=== PATIENT | female | born 1985 | race American Indian/Alaskan Native ===

== ENCOUNTER 2021-01-04 12:36 | Outpatient (CLI) | payer BC, MEDICAID ==
[2021-01-04] MEDS ORDERED: LACTATED RINGERS 500 ML IV ONE (13:34)
[2021-01-04] MEDS ORDERED: NIFEdipine XL 30 MG TAB PO NR (13:40)
[2021-01-04 14:07] LABS: Bacteria,Urine 1+ /HPF (Negative); Bilirubin,Urine NEG (Negative); Blood,Urine SM (Negative); Color,Urine Yellow (Yellow); Mucus,Urine 1+ /HPF; Urobilinogen,Urine < 2.0 mg/dL (<2.0)
[2021-01-04 14:21] LABS: Hematocrit 33.8 % (30.3-42.9); Hemoglobin 11.2 gm/dl (10.1-14.3); Mean Corpuscular HGB Conc 33 % (30-34); Mean Corpuscular Volume 90 fl (79-97); Platelet Count 260 K/mm3 (140-440); Red Blood Count 3.76 M/mm3 (3.65-5.03); Red Cell Distribution Width 12.9 % (13.2-15.2)
[2021-01-04 14:23] LABS: Alanine Aminotransferase 6 units/L (7-56)
[2021-01-04 14:55] VITALS: BP 154/99
== END 2021-01-04 15:31 | disposition home or self-care (01) ==
LOC: TRG 12:36 → APU 12:38 → TRG 15:31
DX: O09.893 Supervision of other high risk pregnancies, third trimester (principal); Z3A.34 34 weeks gestation of pregnancy
CPT/HCPCS: 36415; 59025; 81001; 82565; 83615; 84450; 84460; 84550; 85027

== ENCOUNTER 2021-01-10 11:21 | Inpatient (IN) | payer BC, MEDICAID ==
[2021-01-10] MEDS ORDERED: LACTATED RINGERS 1,000 ML IV ONE (12:06)
[2021-01-10 12:45] LABS: Hematocrit 34.5 % (30.3-42.9); Hemoglobin 11.1 gm/dl (10.1-14.3); Mean Corpuscular HGB Conc 32 % (30-34); Mean Corpuscular Volume 89 fl (79-97); Platelet Count 298 K/mm3 (140-440); Red Blood Count 3.89 M/mm3 (3.65-5.03); Red Cell Distribution Width 13.6 % (13.2-15.2)
[2021-01-10 12:49] LABS: Bilirubin,Urine NEG (Negative); Blood,Urine MOD (Negative); Color,Urine Yellow (Yellow); Mucus,Urine FEW /HPF; Urobilinogen,Urine < 2.0 mg/dL (<2.0)
[2021-01-10 12:51] LABS: Protein,Urine <15 mg/dL mg/dL (Negative)
[2021-01-10 13:12] LABS: Alanine Aminotransferase 6 units/L (7-56); Uric Acid 4.7 mg/dL (3.5-7.6)
[2021-01-10] MEDS ORDERED: hydrALAZINE 20 MG/1 ML INJ IV NR (14:04)
[2021-01-10] MEDS ORDERED: hydrALAZINE 20 MG/1 ML INJ ONE ×2 (14:06→16:38)
[2021-01-10] MEDS ORDERED: OXYTOCIN 10 UNIT/1 ML INJ IM PRN (14:28)
[2021-01-10] MEDS ORDERED: CARBOPROST TROMETHAMINE 250 MCG/1 ML INJ IM PRN (14:28)
[2021-01-10] MEDS ORDERED: LOPERAMIDE 2 MG CAP PO PRN (14:28)
[2021-01-10] MEDS ORDERED: TERBUTALINE 1 MG/1 ML INJ SUB-Q PRN (14:28)
[2021-01-10] MEDS ORDERED: miSOPROStol 200 MCG TAB PR PRN (14:28)
[2021-01-10] MEDS ORDERED: METHYLERGONOVINE MALEATE 0.2 MG/ML VIAL IM PRN (14:28)
[2021-01-10] MEDS ORDERED: LIDOCAINE (2%) 20 MG/1 ML VIAL 20 ML MDV INFILTRATI NR (14:28)
[2021-01-10] MEDS ORDERED: LACTATED RINGERS 1,000 ML IV SCH (14:30)
[2021-01-10] MEDS ORDERED: MAGNESIUM SULFATE 4 GM/100 ML BAG IV ONE (14:39)
--- NOTE | 2021-01-10 14:45 | History and Physical Report ---
History of Present Illness Date of examination: 01/10/21 Date of admission: 01/10/21 Chief complaint: ELEVATED BP. History of present illness: This is Dr. Peñaloza dictating history and physical patient Maryana Scanlon. Her records are not here in the hospital. The patient is a 35-year-old female 9 para 7-0-1-7. She apparently has been taken Procardia during this . She was sent over from the clinic with elevated blood pressures today. Family medical history is noncontributory social history patient is single lives with children she is not . 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 She denies headaches or blurred vision. she has had elevated blood pressure with a previous . At this time the patient is also limited over 35 weeks . And she had a significantly elevated blood pressure when she presented to triage at the hospital. Subsequently the patient was admitted for treatment of low blood pressure magnesium sulfate and and possible induction of labor. Past History Past Medical History: hypertension Past Surgical History: no surgical history, other (7 vaginal deliveries.) Family/Genetic History: none Social history: no significant social history, single - Obstetrical History Expected Date of Delivery: 02/13/21 Actual Gestation: 35 Week(s) 1 Day(s) : 9 Para: 7 Hx # Term Pregnancies: 7 Number of Pregnancies: 0 Spontaneous Abortions: 1 Induced : 0 Number of Living Children: 7 Medications and Allergies Allergies Allergy/AdvReac Type Severity Reaction Status Date / Time No Known Allergies Allergy Verified 10/21/13 13:59 Home Medications Medication Instructions Recorded Confirmed Last Taken Type Ferrous Sulfate [Feosol 325 MG tab] 325 mg PO BID #60 tablet 06/05/16 Unknown Rx Ibuprofen [Motrin 600 MG tab] 600 mg PO Q6H #30 tablet 06/05/16 Unknown Rx Vit-Fe Fumar-FA [ 1 each PO QDAY #30 tablet 06/05/16 Unknown Rx Vitamin] labetaloL [Labetalol 200mg TAB] 200 mg PO BID #60 tablet 06/05/16 Unknown Rx Active Meds: Active Medications Carboprost Tromethamine (Carboprost Tromethamine 250 Mcg/1 Ml Inj) 250 mcg IM ONCE PRN PRN Reason: Uterine Bleeding Ephedrine Sulfate (Ephedrine Sulfate 50 Mg/1 Ml Inj) 10 mg IV Q2M PRN PRN Reason: Hypotension Lactated Ringer's (Lactated Ringers) 1,000 mls @ 125 mls/hr IV DIRECT ML Oxytocin/Sodium Chloride (Pitocin/Ns 30 Unit/500ml) 30 units in 500 mls @ 2 mls/hr IV TITR ML; Protocol Lactated Ringer's (Lactated Ringers) 1,000 mls @ 125 mls/hr IV DIRECT ML Oxytocin/Sodium Chloride (Pitocin/Ns 30 Unit/500ml) 30 units in 500 mls @ 40 mls/hr IV TITR ML; Protocol Magnesium Sulfate (Magnesium Sulfate 40gm/1000ml) 40 gm in 1,000 mls @ 50 mls/hr IV DIRECT ML Lidocaine (Lidocaine (2%) 20 Mg/1 Ml Vial 20 Ml Mdv) 20 ml INFILTRATI ONCE ONE Stop: 01/10/21 14:29 Loperamide HCl (Loperamide 2 Mg Cap) 2 mg PO ONCE PRN PRN Reason: give with Hemabate Methylergonovine Maleate (Methylergonovine Maleate 0.2 Mg/Ml Vial) 0.2 mg IM ONCE PRN PRN Reason: Uterine Bleeding Mineral Oil (Mineral Oil 30 Ml Oral Liqd) 30 ml PO QHS PRN PRN Reason: Constipation Misoprostol (Misoprostol 200 Mcg Tab) 800 mcg ME ONCE PRN PRN Reason: Uterine Bleeding Oxytocin (Oxytocin 10 Unit/1 Ml Inj) 10 unit IM ONCE PRN PRN Reason: Uterine Bleeding Terbutaline Sulfate (Terbutaline 1 Mg/1 Ml Inj) 0.25 mg SUB-Q ONCE PRN PRN Reason: Hyperstimulation/Hypertonicity Review of Systems All systems: negative - Vital Signs Vital signs: Vital Signs Pulse BP 83 188/102 01/10/21 12:04 01/10/21 12:04 Temp Pulse Resp BP Pulse Ox 98.2 F 97 H 20 174/77 100 01/10/21 12:25 01/10/21 14:34 01/10/21 12:25 01/10/21 14:34 01/10/21 14:34 - Physical Exam Breasts: Cardiovascular: Regular rate, Normal S1, Normal S2 Lungs: Positive: Clear to auscultation Abdomen: Positive: normal appearance, soft, normal bowel sounds. Negative: distention, tenderness Genitourinary (Female): Positive: normal external genitalia Vulva: both: normal Vagina: Positive: normal moisture. Negative: discharge Cervix: Positive: other (1 cm 50% -4 station vertex presenting bag of water intact) Uterus: Positive: enlarged, other (35-week size .) Adnexa: both: normal - Obstetrical FHR: auscultation normal, category 1 Uterine Contraction Monitor Mode: External Cervical Dilatation: 1 Cervical Effacement Percentage: 50 station: -4 Uterine Contraction Pattern: Absent Results Result Diagrams: 01/10/21 Unknown 01/10/21 Unknown Abnormal lab results 01/10/21 01/10/21 Range/Units Unknown Unknown WBC 14.3 H (4.5-11.0) K/mm3 Creatinine 0.4 L (0.6-1.2) mg/dL ALT 6 L (7-56) units/L Lactate Dehydrogenase 206 H (91-180) units/L All other labs normal. Assessment and Plan Severe toxemia of at 35 weeks. Plan treatment with magnesium sulfate treat her hypertensive disease and we will induce her with probably Cervidil later on today okay.
[2021-01-10] MEDS ORDERED: OXYTOCIN DRIP 30 UNITS/500 ML BAG IV SCH ×2 (15:00)
[2021-01-10] MEDS ORDERED: ePHEDrine SULFATE 50 MG/1 ML INJ IV PRN (15:00)
[2021-01-10] MEDS: MAGNESIUM SULFATE 40GM/1000ML 40 GM/1,000 ML BAG IV SCH (15:59)
[2021-01-10] MEDS ORDERED: hydrALAZINE 20 MG/1 ML INJ IV ONE (16:30)
[2021-01-10] MEDS ORDERED: DINOPROSTONE 10 MG VAG SUPP VG PRN (17:18)
[2021-01-10 18:17] LABS: Hematocrit 32.6 % (30.3-42.9); Hemoglobin 11.2 gm/dl (10.1-14.3); Mean Corpuscular HGB Conc 34 % (30-34); Mean Corpuscular Volume 89 fl (79-97); Platelet Count 298 K/mm3 (140-440); Red Blood Count 3.66 M/mm3 (3.65-5.03); Red Cell Distribution Width 13.7 % (13.2-15.2)
[2021-01-10] MEDS ORDERED: HYDROcodone/ACETAMINOPHEN 5-325 MG TAB PO PRN (19:47)
[2021-01-10] MEDS ORDERED: MINERAL OIL 30 ML ORAL LIQD PO PRN (22:00)
[2021-01-11] MEDS ORDERED: SODIUM CHLORIDE NASAL SPRAY 44ML NS PRN (00:54)
[2021-01-11] MEDS ORDERED: ACETAMINOPHEN 325 MG TAB PO ONE (01:52)
[2021-01-11] MEDS: LACTATED RINGERS 1,000 ML IV SCH ×2 (05:37→19:15)
[2021-01-11] MEDS ORDERED: ACETAMINOPHEN 500 MG TAB PO PRN (09:00)
[2021-01-11] MEDS ORDERED: AMPICILLIN/NS 2 GM/100 ML 2 GM/100 ML BAG IV ONE ×2 (10:10→10:30)
--- NOTE | 2021-01-11 10:16 | Progress Note ---
Assessment and Plan A: IUP @ 35 2/7 Weeks Category I Tracing CHTN with Superimposed Preeclampsia Advanced Maternal Age Grandmultip Maternal Obesity GBS Unknown P: Continue Magnesium Sulfate as ordered Continue Standard Magnesium Precautions Cook's Cervical Ripening Balloon Placed Start Low Dose Pitocin Start GBS Prophylaxis Subjective - Subjective Date of service: 01/11/21 Patient reports: movement normal, other (Reported a DUNCAN this morning that is relieved by Tylenol. Denies visual changes, N&V, and epigastic pain ) Objective - Vital Signs Vital Signs: Vital Signs - 12hr 01/10/21 01/10/21 01/10/21 22:14 22:19 22:24 Temperature Pulse Rate 109 H 109 H 108 H Respiratory Rate Blood Pressure O2 Sat by Pulse 99 100 99 Oximetry 01/10/21 01/10/21 01/10/21 22:29 22:34 22:36 Temperature Pulse Rate 112 H 109 H 110 H Respiratory Rate Blood Pressure 135/73 O2 Sat by Pulse 99 99 Oximetry 01/10/21 01/10/21 01/10/21 22:39 22:44 22:49 Temperature Pulse Rate 103 H 110 H 108 H Respiratory Rate Blood Pressure O2 Sat by Pulse 99 99 100 Oximetry 01/10/21 01/10/21 01/10/21 22:54 22:59 23:04 Temperature Pulse Rate 109 H 110 H 106 H Respiratory Rate Blood Pressure O2 Sat by Pulse 99 99 99 Oximetry 01/10/21 01/10/21 01/10/21 23:09 23:14 23:19 Temperature Pulse Rate 107 H 105 H 112 H Respiratory Rate Blood Pressure O2 Sat by Pulse 99 99 100 Oximetry 01/10/21 01/10/21 01/10/21 23:24 23:29 23:34 Temperature Pulse Rate 105 H 108 H 98 H Respiratory Rate Blood Pressure O2 Sat by Pulse 99 99 98 Oximetry 01/10/21 01/10/21 01/10/21 23:36 23:39 23:44 Temperature Pulse Rate 96 H 107 H 111 H Respiratory Rate Blood Pressure 134/73 O2 Sat by Pulse 98 99 Oximetry 01/10/21 01/10/21 01/10/21 23:49 23:52 23:54 Temperature Pulse Rate 91 H 52 L 95 H Respiratory Rate Blood Pressure O2 Sat by Pulse 98 86 98 Oximetry 01/10/21 01/11/21 01/11/21 23:59 00:04 00:09 Temperature Pulse Rate 89 85 88 Respiratory Rate Blood Pressure O2 Sat by Pulse 97 98 98 Oximetry 01/11/21 01/11/21 01/11/21 00:14 00:19 00:24 Temperature Pulse Rate 81 78 91 H Respiratory Rate Blood Pressure O2 Sat by Pulse 97 97 97 Oximetry 01/11/21 01/11/21 01/11/21 00:29 00:34 00:37 Temperature Pulse Rate 98 H 75 96 H Respiratory Rate Blood Pressure 141/77 O2 Sat by Pulse 98 99 Oximetry 01/11/21 01/11/21 01/11/21 00:39 00:44 00:49 Temperature Pulse Rate 114 H 112 H 91 H Respiratory Rate Blood Pressure O2 Sat by Pulse 99 100 98 Oximetry 01/11/21 01/11/21 01/11/21 00:54 00:59 01:04 Temperature Pulse Rate 104 H 93 H 91 H Respiratory Rate Blood Pressure O2 Sat by Pulse 100 98 98 Oximetry 01/11/21 01/11/21 01/11/21 01:09 01:14 01:19 Temperature Pulse Rate 76 81 91 H Respiratory Rate Blood Pressure O2 Sat by Pulse 98 97 99 Oximetry 01/11/21 01/11/21 01/11/21 01:24 01:29 01:34 Temperature Pulse Rate 111 H 79 88 Respiratory Rate Blood Pressure O2 Sat by Pulse 99 97 97 Oximetry 01/11/21 01/11/21 01/11/21 01:37 01:39 01:41 Temperature Pulse Rate 82 87 109 H Respiratory Rate Blood Pressure 129/64 O2 Sat by Pulse 97 93 Oximetry 01/11/21 01/11/21 01/11/21 01:44 01:49 01:54 Temperature Pulse Rate 80 84 83 Respiratory Rate Blood Pressure O2 Sat by Pulse 98 98 97 Oximetry 01/11/21 01/11/21 01/11/21 01:59 02:04 02:09 Temperature Pulse Rate 78 95 H 92 H Respiratory Rate Blood Pressure O2 Sat by Pulse 97 99 96 Oximetry 01/11/21 01/11/21 01/11/21 02:14 02:19 02:24 Temperature Pulse Rate 111 H 92 H 83 Respiratory Rate Blood Pressure O2 Sat by Pulse 99 97 98 Oximetry 01/11/21 01/11/21 01/11/21 02:29 02:34 02:36 Temperature Pulse Rate 89 81 97 H Respiratory Rate Blood Pressure 140/75 O2 Sat by Pulse 97 97 Oximetry 01/11/21 01/11/21 01/11/21 02:39 02:44 02:49 Temperature Pulse Rate 95 H 92 H 87 Respiratory Rate Blood Pressure O2 Sat by Pulse 96 98 96 Oximetry 01/11/21 01/11/21 01/11/21 02:54 02:59 03:04 Temperature Pulse Rate 91 H 92 H 90 Respiratory Rate Blood Pressure O2 Sat by Pulse 97 98 98 Oximetry 01/11/21 01/11/21 01/11/21 03:09 03:14 03:19 Temperature Pulse Rate 95 H 99 H 89 Respiratory Rate Blood Pressure O2 Sat by Pulse 97 97 98 Oximetry 01/11/21 01/11/21 01/11/21 03:24 03:28 03:29 Temperature Pulse Rate 94 H 102 H 92 H Respiratory Rate Blood Pressure O2 Sat by Pulse 98 93 99 Oximetry 01/11/21 01/11/21 01/11/21 03:34 03:36 03:39 Temperature Pulse Rate 90 103 H 99 H Respiratory Rate Blood Pressure 134/62 O2 Sat by Pulse 98 98 Oximetry 01/11/21 01/11/21 01/11/21 03:44 03:49 03:54 Temperature Pulse Rate 105 H 96 H 103 H Respiratory Rate Blood Pressure O2 Sat by Pulse 98 98 98 Oximetry 01/11/21 01/11/21 01/11/21 03:59 04:00 04:04 Temperature 98.3 F Pulse Rate 87 116 H Respiratory 18 Rate Blood Pressure O2 Sat by Pulse 98 96 Oximetry 01/11/21 01/11/21 01/11/21 04:09 04:14 04:19 Temperature Pulse Rate 93 H 87 86 Respiratory Rate Blood Pressure O2 Sat by Pulse 98 98 98 Oximetry 01/11/21 01/11/21 01/11/21 04:24 04:29 04:34 Temperature Pulse Rate 116 H 105 H 90 Respiratory Rate Blood Pressure O2 Sat by Pulse 98 98 99 Oximetry 01/11/21 01/11/21 01/11/21 04:36 04:39 04:44 Temperature Pulse Rate 97 H 96 H 107 H Respiratory Rate Blood Pressure 139/92 O2 Sat by Pulse 100 98 Oximetry 01/11/21 01/11/21 01/11/21 04:49 04:54 04:59 Temperature Pulse Rate 94 H 89 98 H Respiratory Rate Blood Pressure O2 Sat by Pulse 97 98 99 Oximetry 01/11/21 01/11/21 01/11/21 05:04 05:09 05:14 Temperature Pulse Rate 116 H 121 H 113 H Respiratory Rate Blood Pressure O2 Sat by Pulse 97 98 99 Oximetry 01/11/21 01/11/21 01/11/21 05:19 05:24 05:29 Temperature Pulse Rate 103 H 98 H 95 H Respiratory Rate Blood Pressure O2 Sat by Pulse 98 98 99 Oximetry 01/11/21 01/11/21 01/11/21 05:34 05:39 05:44 Temperature Pulse Rate 89 93 H 90 Respiratory Rate Blood Pressure O2 Sat by Pulse 98 99 97 Oximetry 01/11/21 01/11/21 01/11/21 05:49 05:54 05:59 Temperature Pulse Rate 85 82 77 Respiratory Rate Blood Pressure O2 Sat by Pulse 96 97 98 Oximetry 01/11/21 01/11/21 01/11/21 06:04 06:09 06:14 Temperature Pulse Rate 82 82 108 H Respiratory Rate Blood Pressure O2 Sat by Pulse 96 96 97 Oximetry 01/11/21 01/11/21 01/11/21 06:19 06:21 06:24 Temperature Pulse Rate 81 95 H 104 H Respiratory Rate Blood Pressure O2 Sat by Pulse 97 93 100 Oximetry 01/11/21 01/11/21 01/11/21 06:29 06:34 06:36 Temperature Pulse Rate 98 H 76 100 H Respiratory Rate Blood Pressure O2 Sat by Pulse 97 96 92 Oximetry 01/11/21 01/11/21 01/11/21 06:39 06:44 06:45 Temperature Pulse Rate 89 82 96 H Respiratory Rate Blood Pressure O2 Sat by Pulse 98 96 94 Oximetry 01/11/21 01/11/21 01/11/21 06:47 06:49 06:54 Temperature Pulse Rate 97 H 95 H 105 H Respiratory Rate Blood Pressure 173/83 142/82 O2 Sat by Pulse 98 96 Oximetry 01/11/21 01/11/21 01/11/21 06:59 07:04 07:09 Temperature Pulse Rate 85 101 H 97 H Respiratory Rate Blood Pressure O2 Sat by Pulse 97 98 99 Oximetry 01/11/21 01/11/21 01/11/21 07:13 07:14 07:15 Temperature 97.9 F Pulse Rate 92 H 96 H Respiratory 20 Rate Blood Pressure 146/83 O2 Sat by Pulse 100 99 Oximetry 01/11/21 01/11/21 01/11/21 07:19 07:24 07:29 Temperature Pulse Rate 96 H 93 H 84 Respiratory Rate Blood Pressure O2 Sat by Pulse 99 98 98 Oximetry 01/11/21 01/11/21 01/11/21 07:34 07:37 07:38 Temperature Pulse Rate 92 H 96 H 91 H Respiratory Rate Blood Pressure 176/85 157/82 O2 Sat by Pulse 99 Oximetry 01/11/21 01/11/21 01/11/21 07:39 07:44 07:49 Temperature Pulse Rate 88 84 106 H Respiratory Rate Blood Pressure O2 Sat by Pulse 98 97 99 Oximetry 01/11/21 01/11/21 01/11/21 07:54 07:59 08:04 Temperature Pulse Rate 107 H 95 H 92 H Respiratory Rate Blood Pressure O2 Sat by Pulse 99 97 97 Oximetry 01/11/21 01/11/21 01/11/21 08:09 08:14 08:19 Temperature Pulse Rate 94 H 118 H 98 H Respiratory Rate Blood Pressure O2 Sat by Pulse 97 99 99 Oximetry 01/11/21 01/11/21 01/11/21 08:24 08:29 08:34 Temperature Pulse Rate 96 H 96 H 98 H Respiratory Rate Blood Pressure O2 Sat by Pulse 98 99 99 Oximetry 01/11/21 01/11/21 01/11/21 08:36 08:39 08:44 Temperature Pulse Rate 103 H 99 H 99 H Respiratory 20 Rate Blood Pressure 146/82 O2 Sat by Pulse 98 99 Oximetry 01/11/21 01/11/21 01/11/21 08:49 08:54 08:59 Temperature Pulse Rate 94 H 94 H 107 H Respiratory Rate Blood Pressure O2 Sat by Pulse 99 99 98 Oximetry 01/11/21 01/11/21 01/11/21 09:04 09:09 09:14 Temperature Pulse Rate 92 H 89 89 Respiratory Rate Blood Pressure O2 Sat by Pulse 97 97 97 Oximetry 01/11/21 01/11/21 01/11/21 09:19 09:24 09:29 Temperature Pulse Rate 104 H 94 H 89 Respiratory Rate Blood Pressure O2 Sat by Pulse 99 98 97 Oximetry 01/11/21 01/11/2101/11/21 09:34 09:36 09:39 Temperature Pulse Rate 96 H 99 H 89 Respiratory Rate Blood Pressure 145/76 O2 Sat by Pulse 98 98 Oximetry 01/11/21 01/11/21 01/11/21 09:44 09:50 09:55 Temperature Pulse Rate 97 H 107 H 98 H Respiratory Rate Blood Pressure O2 Sat by Pulse 98 100 100 Oximetry 01/11/21 01/11/21 10:00 10:05 Temperature Pulse Rate 104 H 101 H Respiratory Rate Blood Pressure O2 Sat by Pulse 100 99 Oximetry - Exam Cardiovascular: Regular rate Lungs: Normal air movement Abdomen: Present: normal appearance, soft Uterus: Present: normal, firm, fundal height above umbilicus FHR: category 1 Uterine Contraction Monitor Mode: External Cervical Dilatation: 1 (Vtx; Intact) Cervical Effacement Percentage: 40 station: -3 Uterine Contraction Pattern: Irregular Uterine Tone Measurement Phase: Resting Uterine Contraction Intensity: Mild Extremities: normal - Labs Labs: Abnormal Labs 01/10/21 01/10/21 01/10/21 17:49 22:32 Unknown WBC 17.3 H 14.3 H Creatinine Magnesium 4.20 H ALT Lactate Dehydrogenase 01/10/21 01/11/21 Unknown 05:29 WBC Creatinine 0.4 L Magnesium 4.70 H ALT 6 L Lactate Dehydrogenase 206 H Laboratory Results - last 24 hr 01/10/21 01/10/21 01/10/21 14:20 17:49 22:32 WBC 17.3 H RBC 3.66 Hgb 11.2 Hct 32.6 MCV 89 MCH 31 MCHC 34 RDW 13.7 Plt Count 298 Creatinine Estimated GFR Uric Acid Magnesium 4.20 H AST ALT Lactate Dehydrogenase Urine Color Urine Turbidity Urine pH Ur Specific [place] Urine Protein Urine Glucose (UA) Urine Ketones Urine Blood Urine Nitrite Urine Bilirubin Urine Urobilinogen Ur Leukocyte Esterase Urine WBC (Auto) Urine RBC (Auto) U Epithel Cells (Auto) Urine Mucus Syphilis IgG Antibody HIV 1&2 Antibody Rapid HIV P24 Antigen Blood Type AB POSITIVE Antibody Screen Negative 01/10/21 01/10/21 01/10/21 Unknown Unknown Unknown WBC 14.3 H RBC 3.89 Hgb 11.1 Hct 34.5 MCV 89 MCH 29 MCHC 32 RDW 13.6 Plt Count 298 Creatinine 0.4 L Estimated GFR > 60 Uric Acid 4.7 Magnesium AST 13 ALT 6 L Lactate Dehydrogenase 206 H Urine Color Yellow Urine Turbidity Clear Urine pH 6.0 Ur Specific [place] 1.019 Urine Protein <15 mg/dl Urine Glucose (UA) Neg Urine Ketones Tr Urine Blood Mod Urine Nitrite Neg Urine Bilirubin Neg Urine Urobilinogen < 2.0 Ur Leukocyte Esterase Neg Urine WBC (Auto) 1.0 Urine RBC (Auto) 14.0 U Epithel Cells (Auto) 10.0 Urine Mucus Few Syphilis IgG Antibody HIV 1&2 Antibody Rapid HIV P24 Antigen Blood Type Antibody Screen 01/11/21 01/11/21 01/11/21 05:29 05:29 05:29 WBC RBC Hgb Hct MCV MCH MCHC RDW Plt Count Creatinine Estimated GFR Uric Acid Magnesium 4.70 H AST ALT Lactate Dehydrogenase Urine Color Urine Turbidity Urine pH Ur Specific [place] Urine Protein Urine Glucose (UA) Urine Ketones Urine Blood Urine Nitrite Urine Bilirubin Urine Urobilinogen Ur Leukocyte Esterase Urine WBC (Auto) Urine RBC (Auto) U Epithel Cells (Auto) Urine Mucus Syphilis IgG Antibody Nonreactive HIV 1&2 Antibody Rapid Non react HIV P24 Antigen Non react Blood Type Antibody Screen
--- NOTE | 2021-01-11 12:53 | Progress Note ---
Assessment and Plan A: IUP @ 35 2/7 Weeks Category I Tracing CHTN with Superimposed Preeclampsia Advanced Maternal Age Grandmultip Maternal Obesity GBS Unknown P: Continue Magnesium Sulfate as ordered Continue Standard Magnesium Precautions Cook's Cervical Ripening Balloon fell out AROM Continue Pitocin Augmentation Continue GBS Prophylaxis Subjective - Subjective Date of service: 01/11/21 Patient reports: movement normal, contractions, other Objective - Vital Signs Vital Signs: Vital Signs - 12hr 01/11/21 01/11/21 01/11/21 00:54 00:59 01:04 Temperature Pulse Rate 104 H 93 H 91 H Respiratory Rate Blood Pressure O2 Sat by Pulse 100 98 98 Oximetry 01/11/21 01/11/21 01/11/21 01:09 01:14 01:19 Temperature Pulse Rate 76 81 91 H Respiratory Rate Blood Pressure O2 Sat by Pulse 98 97 99 Oximetry 01/11/21 01/11/21 01/11/21 01:24 01:29 01:34 Temperature Pulse Rate 111 H 79 88 Respiratory Rate Blood Pressure O2 Sat by Pulse 99 97 97 Oximetry 01/11/21 01/11/21 01/11/21 01:37 01:39 01:41 Temperature Pulse Rate 82 87 109 H Respiratory Rate Blood Pressure 129/64 O2 Sat by Pulse 97 93 Oximetry 01/11/21 01/11/21 01/11/21 01:44 01:49 01:54 Temperature Pulse Rate 80 84 83 Respiratory Rate Blood Pressure O2 Sat by Pulse 98 98 97 Oximetry 01/11/21 01/11/21 01/11/21 01:59 02:04 02:09 Temperature Pulse Rate 78 95 H 92 H Respiratory Rate Blood Pressure O2 Sat by Pulse 97 99 96 Oximetry 01/11/21 01/11/21 01/11/21 02:14 02:19 02:24 Temperature Pulse Rate 111 H 92 H 83 Respiratory Rate Blood Pressure O2 Sat by Pulse 99 97 98 Oximetry 01/11/21 01/11/21 01/11/21 02:29 02:34 02:36 Temperature Pulse Rate 89 81 97 H Respiratory Rate Blood Pressure 140/75 O2 Sat by Pulse 97 97 Oximetry 01/11/21 01/11/21 01/11/21 02:39 02:44 02:49 Temperature Pulse Rate 95 H 92 H 87 Respiratory Rate Blood Pressure O2 Sat by Pulse 96 98 96 Oximetry 06/01/11/21 01/11/21 02:54 02:59 03:04 Temperature Pulse Rate 91 H 92 H 90 Respiratory Rate Blood Pressure O2 Sat by Pulse 97 98 98 Oximetry 01/11/21 01/11/21 01/11/21 03:09 03:14 03:19 Temperature Pulse Rate 95 H 99 H 89 Respiratory Rate Blood Pressure O2 Sat by Pulse 97 97 98 Oximetry 01/11/21 01/11/21 01/11/21 03:24 03:28 03:29 Temperature Pulse Rate 94 H 102 H 92 H Respiratory Rate Blood Pressure O2 Sat by Pulse 98 93 99 Oximetry 01/11/21 01/11/21 01/11/21 03:34 03:36 03:39 Temperature Pulse Rate 90 103 H 99 H Respiratory Rate Blood Pressure 134/62 O2 Sat by Pulse 98 98 Oximetry 01/11/21 01/11/21 01/11/21 03:44 03:49 03:54 Temperature Pulse Rate 105 H 96 H 103 H Respiratory Rate Blood Pressure O2 Sat by Pulse 98 98 98 Oximetry 01/11/21 01/11/21 01/11/21 03:59 04:00 04:04 Temperature 98.3 F Pulse Rate 87 116 H Respiratory 18 Rate Blood Pressure O2 Sat by Pulse 98 96 Oximetry 01/11/21 01/11/21 01/11/21 04:09 04:14 04:19 Temperature Pulse Rate 93 H 87 86 Respiratory Rate Blood Pressure O2 Sat by Pulse 98 98 98 Oximetry 01/11/21 01/11/21 01/11/21 04:24 04:29 04:34 Temperature Pulse Rate 116 H 105 H 90 Respiratory Rate Blood Pressure O2 Sat by Pulse 98 98 99 Oximetry 01/11/21 01/11/21 01/11/21 04:36 04:39 04:44 Temperature Pulse Rate 97 H 96 H 107 H Respiratory Rate Blood Pressure 139/92 O2 Sat by Pulse 100 98 Oximetry 01/11/21 01/11/21 01/11/21 04:49 04:54 04:59 Temperature Pulse Rate 94 H 89 98 H Respiratory Rate Blood Pressure O2 Sat by Pulse 97 98 99 Oximetry 01/11/21 01/11/21 01/11/21 05:04 05:09 05:14 Temperature Pulse Rate 116 H 121 H 113 H Respiratory Rate Blood Pressure O2 Sat by Pulse 97 98 99 Oximetry 01/11/21 01/11/21 01/11/21 05:19 05:24 05:29 Temperature Pulse Rate 103 H 98 H 95 H Respiratory Rate Blood Pressure O2 Sat by Pulse 98 98 99 Oximetry 01/11/21 01/11/21 01/11/21 05:34 05:39 05:44 Temperature Pulse Rate 89 93 H 90 Respiratory Rate Blood Pressure O2 Sat by Pulse 98 99 97 Oximetry 01/11/21 01/11/21 01/11/21 05:49 05:54 05:59 Temperature Pulse Rate 85 82 77 Respiratory Rate Blood Pressure O2 Sat by Pulse 96 97 98 Oximetry 01/11/21 01/11/21 01/11/21 06:04 06:09 06:14 Temperature Pulse Rate 82 82 108 H Respiratory Rate Blood Pressure O2 Sat by Pulse 96 96 97 Oximetry 01/11/21 01/11/21 01/11/21 06:19 06:21 06:24 Temperature Pulse Rate 81 95 H 104 H Respiratory Rate Blood Pressure O2 Sat by Pulse 97 93 100 Oximetry 01/11/21 01/11/21 01/11/21 06:29 06:34 06:36 Temperature Pulse Rate 98 H 76 100 H Respiratory Rate Blood Pressure O2 Sat by Pulse 97 96 92 Oximetry 01/11/21 01/11/21 01/11/21 06:39 06:44 06:45 Temperature Pulse Rate 89 82 96 H Respiratory Rate Blood Pressure O2 Sat by Pulse 98 96 94 Oximetry 01/11/21 01/11/21 01/11/21 06:47 06:49 06:54 Temperature Pulse Rate 97 H 95 H 105 H Respiratory Rate Blood Pressure 173/83 142/82 O2 Sat by Pulse 98 96 Oximetry 01/11/21 01/11/21 01/11/21 06:59 07:04 07:09 Temperature Pulse Rate 85 101 H 97 H Respiratory Rate Blood Pressure O2 Sat by Pulse 97 98 99 Oximetry 01/11/21 01/11/21 01/11/21 07:13 07:14 07:15 Temperature 97.9 F Pulse Rate 92 H 96 H Respiratory 20 Rate Blood Pressure 146/83 O2 Sat by Pulse 100 99 Oximetry 01/11/21 01/11/21 01/11/21 07:19 07:24 07:29 Temperature Pulse Rate 96 H 93 H 84 Respiratory Rate Blood Pressure O2 Sat by Pulse 99 98 98 Oximetry 01/11/21 01/11/21 01/11/21 07:34 07:37 07:38 Temperature Pulse Rate 92 H 96 H 91 H Respiratory Rate Blood Pressure 176/85 157/82 O2 Sat by Pulse 99 Oximetry 01/11/21 01/11/21 01/11/21 07:39 07:44 07:49 Temperature Pulse Rate 88 84 106 H Respiratory Rate Blood Pressure O2 Sat by Pulse 98 97 99 Oximetry 01/11/21 01/11/21 01/11/21 07:54 07:59 08:04 Temperature Pulse Rate 107 H 95 H 92 H Respiratory Rate Blood Pressure O2 Sat by Pulse 99 97 97 Oximetry 01/11/21 01/11/21 01/11/21 08:09 08:14 08:19 Temperature Pulse Rate 94 H 118 H 98 H Respiratory Rate Blood Pressure O2 Sat by Pulse 97 99 99 Oximetry 01/11/21 01/11/21 01/11/21 08:24 08:29 08:34 Temperature Pulse Rate 96 H 96 H 98 H Respiratory Rate Blood Pressure O2 Sat by Pulse 98 99 99 Oximetry 01/11/21 01/11/21 01/11/21 08:36 08:39 08:44 Temperature Pulse Rate 103 H 99 H 99 H Respiratory 20 Rate Blood Pressure 146/82 O2 Sat by Pulse 98 99 Oximetry 01/11/21 01/11/21 01/11/21 08:49 08:54 08:59 Temperature Pulse Rate 94 H 94 H 107 H Respiratory Rate Blood Pressure O2 Sat by Pulse 99 99 98 Oximetry 01/11/21 01/11/21 01/11/21 09:04 09:09 09:14 Temperature Pulse Rate 92 H 89 89 Respiratory Rate Blood Pressure O2 Sat by Pulse 97 97 97 Oximetry 01/11/21 01/11/21 01/11/21 09:19 09:24 09:29 Temperature Pulse Rate 104 H 94 H 89 Respiratory Rate Blood Pressure O2 Sat by Pulse 99 98 97 Oximetry 01/11/21 01/11/21 01/11/21 09:34 09:36 09:39 Temperature Pulse Rate 96 H 99 H 89 Respiratory Rate Blood Pressure 145/76 O2 Sat by Pulse 98 98 Oximetry 01/11/21 01/11/21 01/11/21 09:44 09:50 09:55 Temperature Pulse Rate 97 H 107 H 98 H Respiratory Rate Blood Pressure O2 Sat by Pulse 98 100 100 Oximetry 01/11/21 01/11/21 01/11/21 10:00 10:05 10:10 Temperature Pulse Rate 104 H 101 H 96 H Respiratory Rate Blood Pressure O2 Sat by Pulse 100 99 99 Oximetry 01/11/21 01/11/21 01/11/21 10:15 10:20 10:24 Temperature Pulse Rate 88 93 H 153 H Respiratory Rate Blood Pressure 165/75 O2 Sat by Pulse 100 100 84 Oximetry 01/11/21 01/11/21 01/11/21 10:26 10:31 10:36 Temperature Pulse Rate 88 87 95 H Respiratory Rate Blood Pressure O2 Sat by Pulse 100 96 100 Oximetry 01/11/21 01/11/21 01/11/21 10:37 10:41 10:46 Temperature Pulse Rate 99 H 95 H 93 H Respiratory Rate Blood Pressure 131/64 O2 Sat by Pulse 100 100 Oximetry 01/11/21 01/11/21 01/11/21 10:51 10:56 11:01 Temperature Pulse Rate 95 H 98 H 87 Respiratory Rate Blood Pressure O2 Sat by Pulse 99 100 100 Oximetry 01/11/21 01/11/21 01/11/21 11:06 11:11 11:16 Temperature Pulse Rate 89 88 90 Respiratory Rate Blood Pressure O2 Sat by Pulse 100 100 99 Oximetry 01/11/21 01/11/21 01/11/21 11:20 11:21 11:26 Temperature 98.3 F Pulse Rate 80 85 Respiratory Rate Blood Pressure O2 Sat by Pulse 100 99 Oximetry 01/11/21 01/11/21 01/11/21 11:31 11:36 11:37 Temperature Pulse Rate 90 89 100 H Respiratory Rate Blood Pressure 159/81 O2 Sat by Pulse 100 99 Oximetry 01/11/21 01/11/21 01/11/21 11:41 11:46 11:51 Temperature Pulse Rate 105 H 86 104 H Respiratory Rate Blood Pressure O2 Sat by Pulse 100 100 98 Oximetry 01/11/21 01/11/21 01/11/21 11:56 12:01 12:06 Temperature Pulse Rate 83 82 88 Respiratory Rate Blood Pressure O2 Sat by Pulse 96 98 94 Oximetry 01/11/21 01/11/21 01/11/21 12:11 12:13 12:16 Temperature Pulse Rate 92 H 101 H 94 H Respiratory Rate Blood Pressure 141/93 O2 Sat by Pulse 96 97 Oximetry 01/11/21 01/11/21 01/11/21 12:21 12:26 12:31 Temperature Pulse Rate 88 87 88 Respiratory Rate Blood Pressure O2 Sat by Pulse 98 99 95 Oximetry 01/11/21 01/11/21 01/11/21 12:36 12:41 12:46 Temperature Pulse Rate 98 H 101 H 105 H Respiratory Rate Blood Pressure 167/94 O2 Sat by Pulse 99 100 100 Oximetry 01/11/21 12:51 Temperature Pulse Rate 94 H Respiratory Rate Blood Pressure O2 Sat by Pulse 100 Oximetry - Exam Breasts: normal Cardiovascular: Regular rate Lungs: Clear to auscultation Abdomen: Present: normal appearance, soft Uterus: Present: normal, firm, fundal height above umbilicus FHR: category 1 Uterine Contraction Monitor Mode: External Cervical Dilatation: 5 (AROM of a moderate amount of clear fluid at 1240) Cervical Effacement Percentage: 70 station: -2 Uterine Contraction Pattern: Irregular Uterine Tone Measurement Phase: Resting Uterine Contraction Intensity: Moderate Extremities: normal - Labs Labs: Abnormal Labs 01/10/21 01/10/21 01/10/21 17:49 22:32 Unknown WBC 17.3 H 14.3 H Creatinine Magnesium 4.20 H ALT Lactate Dehydrogenase 01/10/21 01/11/21 01/11/21 Unknown 05:29 11:07 WBC Creatinine 0.4 L Magnesium 4.70 H 5.30 H ALT 6 L Lactate Dehydrogenase 206 H Laboratory Results - last 24 hr 01/10/21 01/10/21 01/10/21 14:20 17:49 22:32 WBC 17.3 H RBC 3.66 Hgb 11.2 Hct 32.6 MCV 89 MCH 31 MCHC 34 RDW 13.7 Plt Count 298 Creatinine Estimated GFR Uric Acid Magnesium 4.20 H AST ALT Lactate Dehydrogenase Urine Protein Syphilis IgG Antibody HIV 1&2 Antibody Rapid HIV P24 Antigen Rubella IgG Antibody Blood Type AB POSITIVE Antibody Screen Negative 01/10/21 01/10/21 01/11/21 Unknown Unknown 05:29 WBC RBC Hgb Hct MCV MCH MCHC RDW Plt Count Creatinine 0.4 L Estimated GFR > 60 Uric Acid 4.7 Magnesium 4.70 H AST 13 ALT 6 L Lactate Dehydrogenase 206 H Urine Protein <15 mg/dl Syphilis IgG Antibody HIV 1&2 Antibody Rapid HIV P24 Antigen Rubella IgG Antibody Blood Type Antibody Screen 01/11/21 01/11/21 01/11/21 05:29 05:29 11:07 WBC RBC Hgb Hct MCV MCH MCHC RDW Plt Count Creatinine Estimated GFR Uric Acid Magnesium 5.30 H AST ALT Lactate Dehydrogenase Urine Protein Syphilis IgG Antibody Nonreactive HIV 1&2 Antibody Rapid Non react HIV P24 Antigen Non react Rubella IgG Antibody Immune Blood Type Antibody Screen
[2021-01-11] MEDS: BUTORPHANOL 2 MG/1 ML INJ IV PRN ×2 (13:02→15:51)
[2021-01-11] MEDS: MAGNESIUM SULFATE 40GM/1000ML 40 GM/1,000 ML BAG IV SCH (13:06)
[2021-01-11] MEDS ORDERED: AMPICILLIN/NS 1 GM/50 ML 1 GM/50 ML BAG IV SCH (14:00)
[2021-01-11] MEDS ORDERED: hydrALAZINE 20 MG/1 ML INJ ONE (16:34)
--- NOTE | 2021-01-11 16:35 | Procedure Note ---
OB Delivery Note - Delivery Date of Delivery: 01/11/21 (1612) Surgeon: MATT VARELA Estimated blood loss: other (150) - Vaginal Delivery presentation: vertex Delivery position: OA Intrapartum events: labor-<37 weeks, preeclampsia Delivery induction: cervidil Delivery augmentation: rupture of membranes, pitocin Delivery monitor: external FHT, external uterine Route of delivery: Delivery placenta: spontaneous Delivery cord: 3 umbilical vessels Episiotomy: none Delivery laceration: none Anesthesia: none Delivery comments: of a live 6'5 male infant over a intact perineum under IV Pain Control with Apgars of 8 and 9 at 1612 on 01/11/2021. directly to maternal abd/chest; skin to skin contact. Spontaneous delivery of placenta complete and intact with Ivy side presenting at 1617. Fundus is firm and midline located 3 below the U; Lochia is scant. Delayed cord clamping and cutting; Cord cut by the Father of the Baby. GBS prophylaxis x 2. Placenta to pathology. To Continue Magnesium Sulfate 2G/hourly x 24 hours . - Infant A at 1 minute: 8 at 5 minutes: 9 Gender: Male (6'5)
[2021-01-11] MEDS ORDERED: hydrALAZINE 20 MG/1 ML INJ IV ONE (16:37)
[2021-01-11] MEDS ORDERED: WITCH HAZEL/ GLYCERIN PAD TP PRN (17:00)
[2021-01-11] MEDS ORDERED: LANOLIN/ZINC/DIMETHICONE (LANSINOH) 7 GM TP PRN (17:00)
[2021-01-11] MEDS ORDERED: MAGNESIUM SULFATE 40GM/1000ML 40 GM/1,000 ML BAG IV SCH (17:00)
[2021-01-11] MEDS ORDERED: PROMETHAZINE 25 MG RECT SUPP PR PRN (17:00)
[2021-01-11] MEDS ORDERED: diphenhydrAMINE 25 MG CAP PO PRN (17:00)
[2021-01-11] MEDS: hydrALAZINE 20 MG/1 ML INJ IV PRN (17:47)
[2021-01-11 20:49] LABS: Hematocrit 33.9 % (30.3-42.9); Mean Corpuscular HGB Conc 32 % (30-34); Mean Corpuscular Volume 91 fl (79-97); Platelet Count 277 K/mm3 (140-440); Red Blood Count 3.73 M/mm3 (3.65-5.03); Red Cell Distribution Width 13.7 % (13.2-15.2)
[2021-01-11 21:40] LABS: Platelet Estimate Consistent w Auto; RBC Morphology Normal; Total Cells Counted 100
[2021-01-11] MEDS ORDERED: MAGNESIUM HYDROXIDE (MOM) ORAL LIQD UDC PO PRN (22:00)
[2021-01-12] MEDS: HYDROcodone/ACETAMINOPHEN 5-325 MG TAB PO PRN ×2 (04:37→18:41)
[2021-01-12 05:20] LABS: Hematocrit 27.4 % (30.3-42.9); Hemoglobin 9.6 gm/dl (10.1-14.3)
[2021-01-12] MEDS: LACTATED RINGERS 1,000 ML IV SCH (07:11)
[2021-01-12] MEDS: FERROUS SULFATE 325 MG TAB PO SCH (09:13)
--- NOTE | 2021-01-12 09:55 | Progress Note ---
Assessment and Plan A: S/P with PIH Asymptomatic anemia P: Continue routine pp care Continue MgSo4 with prec x 24h post del Ferrous Sulfate as prescribed D/c home within 24-48 hrs if stable Subjective - Subjective Date of service: 01/12/21 Principal diagnosis: s/p with PIH Patient reports: appetite normal, voiding normally (VIA MELCHOR CATH), pain well controlled, other (DENIES [place] OR VISUAL PROBLEMS) : doing well, in NICU, bottle feeding Objective - Vital Signs Latest vital signs: Vital Signs Temp Pulse Resp BP BP Pulse Ox 01/12/21 09:52 76 95 01/12/21 09:47 76 94 01/12/21 09:42 71 97 01/12/21 09:37 89 95 01/12/21 09:34 85 117/61 01/12/21 09:33 85 84 01/12/21 09:32 87 97 01/12/21 09:27 84 97 01/12/21 09:22 90 98 01/12/21 09:17 91 H 99 01/12/21 09:13 94 H 138/82 01/12/21 09:12 85 99 01/12/21 09:07 91 H 97 01/12/21 09:04 88 138/82 75 L 01/12/21 09:02 95 H 98 01/12/21 08:57 89 98 01/12/21 08:52 98 H 97 01/12/21 08:47 81 97 01/12/21 08:42 71 94 01/12/21 08:37 79 95 01/12/21 08:34 80 120/73 01/12/21 08:32 77 99 01/12/21 08:30 69 85 01/12/21 08:27 66 95 01/12/21 08:22 60 96 01/12/21 08:21 66 87 01/12/21 08:17 66 91 01/12/21 08:12 71 90 01/12/21 08:07 72 96 01/12/21 08:04 67 137/75 83 L 01/12/21 08:02 63 94 01/12/21 07:57 89 97 01/12/21 07:52 79 97 01/12/21 07:47 68 93 01/12/21 07:42 66 95 01/12/21 07:37 71 93 01/12/21 07:34 66 132/67 85 07 07:32 69 94 01/12/21 07:27 73 97 01/12/21 07:22 72 97 01/12/21 07:17 68 97 01/12/21 07:12 73 96 01/12/21 07:07 68 96 01/12/21 07:04 61 137/64 01/12/21 07:03 70 89 01/12/21 07:02 65 96 01/12/21 06:57 69 98 01/12/21 06:52 79 98 01/12/21 06:47 62 95 01/12/21 06:42 68 93 01/12/21 06:37 74 93 01/12/21 06:34 66 144/66 01/12/21 06:33 64 89 01/12/21 06:32 75 92 01/12/21 06:27 68 92 01/12/21 06:22 67 95 01/12/21 06:17 70 96 01/12/21 06:12 88 98 01/12/21 06:07 77 97 01/12/21 06:04 67 124/65 86 01/12/21 06:02 86 97 01/12/21 05:58 75 89 01/12/21 05:57 72 93 01/12/21 05:52 70 93 01/12/21 05:47 70 95 01/12/21 05:42 64 95 01/12/21 05:37 69 95 01/12/21 05:34 67 132/62 71 L 01/12/21 05:32 71 94 01/12/21 05:27 71 93 01/12/21 05:22 67 96 01/12/21 05:17 69 95 01/12/21 05:12 72 95 01/12/21 05:07 84 97 01/12/21 05:04 68 127/68 01/12/21 05:03 60 77 L 01/12/21 05:02 70 94 01/12/21 04:57 74 92 01/12/21 04:52 72 95 01/12/21 04:47 75 96 01/12/21 04:42 78 95 01/12/21 04:41 76 134/75 62 L 01/12/21 04:37 75 18 98 01/12/21 04:32 79 99 01/12/21 04:27 76 94 01/12/21 04:22 71 96 01/12/21 04:20 79 86 01/12/21 04:17 73 94 01/12/21 04:14 84 85 01/12/21 04:12 72 94 01/12/21 04:07 72 93 01/12/21 04:04 68 121/72 76 L 01/12/21 04:02 74 96 01/12/21 03:57 80 96 01/12/21 03:53 74 89 01/12/21 03:52 77 95 01/12/21 03:47 75 92 01/12/21 03:42 70 95 01/12/21 03:37 76 90 01/12/21 03:34 68 120/70 67 L 01/12/21 03:32 74 97 01/12/21 03:27 67 95 01/12/21 03:22 79 95 01/12/21 03:17 81 98 01/12/21 03:12 80 98 01/12/21 03:07 79 99 01/12/21 03:04 75 126/69 65 L 01/12/21 03:02 78 96 01/12/21 02:57 71 97 01/12/21 02:52 74 98 01/12/21 02:47 74 96 01/12/21 02:42 84 97 01/12/21 02:37 84 99 01/12/21 02:34 88 126/66 01/12/21 02:32 87 99 01/12/21 02:27 85 100 01/12/21 02:22 81 98 01/12/21 02:17 86 99 01/12/21 02:12 89 97 01/12/21 02:09 81 117/65 73 L 01/12/21 02:07 86 97 01/12/21 01:48 87 98 01/12/21 01:43 95 H 96 01/12/21 01:38 85 96 01/12/21 01:33 87 97 01/12/21 01:28 81 98 01/12/21 01:23 83 96 01/12/21 01:18 79 96 01/12/21 01:13 82 95 01/12/21 01:08 82 99 01/12/21 01:03 94 H 98 01/12/21 00:58 82 95 01/12/21 00:53 84 96 01/12/21 00:48 98 H 95 01/12/21 00:43 93 H 97 01/12/21 00:38 92 H 98 01/12/21 00:34 82 117/56 01/12/21 00:33 100 H 98 01/12/21 00:28 87 98 01/12/21 00:23 93 H 98 01/12/21 00:19 82 108/59 01/12/21 00:18 93 H 100 01/12/21 00:13 89 98 01/12/21 00:08 86 99 01/12/21 00:04 90 99/52 01/12/21 00:03 90 98 01/11/21 23:58 89 96 01/11/21 23:53 96 H 95 01/11/21 23:49 85 110/57 01/11/21 23:48 85 96 01/11/21 23:43 81 98 01/11/21 23:38 77 96 01/11/21 23:34 86 120/59 01/11/21 23:33 86 99 01/11/21 23:28 88 98 01/11/21 23:23 89 95 01/11/21 23:19 88 117/62 01/11/21 23:18 88 96 01/11/21 23:13 84 96 01/11/21 23:08 89 97 01/11/21 23:04 85 121/66 01/11/21 23:03 80 96 01/11/21 22:58 84 94 01/11/21 22:53 85 96 01/11/21 22:49 88 114/62 01/11/21 22:48 90 99 01/11/21 22:43 84 96 01/11/21 22:38 93 H 98 01/11/21 22:34 87 117/66 01/11/21 22:33 85 97 01/11/21 22:28 89 97 01/11/21 22:23 85 99 01/11/21 22:19 90 122/69 01/11/21 22:18 93 H 98 01/11/21 22:13 92 H 97 01/11/21 22:08 95 H 98 01/11/21 22:04 96 H 136/72 01/11/21 22:03 94 H 98 01/11/21 21:58 94 H 98 01/11/21 21:53 81 98 01/11/21 21:49 88 140/74 01/11/21 21:48 92 H 98 01/11/21 21:43 88 98 01/11/21 21:38 96 H 97 01/11/21 21:36 86 144/76 01/11/21 21:34 90 134/76 01/11/21 21:33 82 95 01/11/21 21:30 98.1 F 83 18 135/76 135/76 96 01/11/21 21:28 82 96 01/11/21 21:23 96 H 96 01/11/21 21:19 96 H 135/79 01/11/21 21:18 98 H 97 01/11/21 21:13 83 97 01/11/21 21:08 95 H 95 01/11/21 21:04 90 144/78 01/11/21 21:03 82 95 01/11/21 20:58 82 95 01/11/21 20:53 83 96 01/11/21 20:49 94 H 155/90 01/11/21 20:48 87 97 01/11/21 20:43 93 H 98 01/11/21 20:38 92 H 98 01/11/21 20:34 87 158/87 01/11/21 20:33 90 98 01/11/21 20:28 85 97 01/11/21 20:23 83 98 01/11/21 20:19 84 153/80 01/11/21 20:18 91 H 98 01/11/21 20:13 90 97 01/11/21 20:08 90 98 01/11/21 20:04 81 141/73 01/11/21 20:03 81 97 01/11/21 19:58 95 H 98 01/11/21 19:53 85 98 01/11/21 19:49 77 136/70 01/11/21 19:48 80 96 01/11/21 19:43 81 96 01/11/21 19:38 76 98 01/11/21 19:35 83 153/79 01/11/21 19:34 81 152/80 01/11/21 19:33 90 99 01/11/21 19:28 83 96 01/11/21 19:23 82 96 01/11/21 19:19 77 140/73 06/30/21 19:18 83 95 01/11/21 19:13 79 95 01/11/21 19:08 84 96 01/11/21 19:04 81 159/76 01/11/21 19:03 80 98 01/11/21 18:58 85 96 01/11/21 18:53 94 H 96 01/11/21 18:52 94 H 165/77 01/11/21 18:49 100 H 165/77 01/11/21 18:48 98 H 98 01/11/21 18:45 101 H 75 L 01/11/21 18:43 85 97 01/11/21 18:38 98 H 96 01/11/21 18:37 98 H 179/86 01/11/21 18:35 97 H 169/85 01/11/21 18:34 89 176/84 89 01/11/21 18:33 85 94 01/11/21 18:28 87 94 01/11/21 18:23 83 96 01/11/21 18:20 91 H 145/83 89 01/11/21 18:18 85 95 01/11/21 18:16 98.8 F 18 01/11/21 18:13 95 H 98 01/11/21 18:08 99 H 98 01/11/21 18:04 102 H 175/88 84 01/11/21 18:03 103 H 97 01/11/21 17:58 95 H 96 01/11/21 17:53 78 94 01/11/21 17:49 87 173/81 86 01/11/21 17:48 82 100 01/11/21 17:47 78 174/82 01/11/21 17:43 85 100 01/11/21 17:38 91 H 97 01/11/21 17:34 88 174/82 01/11/21 17:33 83 82 L 01/11/21 17:28 87 95 01/11/21 17:23 74 96 01/11/21 17:21 85 89 01/11/21 17:20 85 172/81 01/11/21 17:19 82 172/81 01/11/21 17:18 87 97 01/11/21 17:13 92 H 93 01/11/21 17:08 96 H 96 01/11/21 17:04 90 165/80 89 01/11/21 17:03 97 H 97 01/11/21 17:01 98.2 F 01/11/21 16:58 102 H 99 01/11/21 16:53 97 H 95 01/11/21 16:49 95 H 155/74 01/11/21 16:48 98 H 85 01/11/21 16:43 101 H 98 01/11/21 16:38 92 H 161/76 96 01/11/21 16:34 99 H 161/76 01/11/21 16:33 99 H 98 01/11/21 16:31 98 H 176/88 01/11/21 16:29 102 H 177/83 01/11/21 16:28 99 H 169/86 71 L 01/11/21 16:23 104 H 99 01/11/21 16:18 103 H 98 01/11/21 16:13 98 H 97 01/11/21 16:11 98 H 83 L 01/11/21 16:06 91 H 97 01/11/21 16:01 76 175/83 96 01/11/21 16:00 98.3 F 68 18 183/84 01/11/21 15:56 98 H 100 01/11/21 15:55 67 77 L 01/11/21 15:51 89 99 01/11/21 15:46 160 H 81 L 01/11/21 15:41 96 H 100 01/11/21 15:36 111 H 98 01/11/21 15:31 100 H 97 01/11/21 15:27 115 H 145/71 01/11/21 15:26 116 H 98 01/11/21 15:21 108 H 99 01/11/21 15:18 73 88 01/11/21 15:16 109 H 100 01/11/21 15:11 88 98 01/11/21 15:06 94 H 98 01/11/21 15:01 100 H 99 01/11/21 14:57 90 160/77 01/11/21 14:56 98 H 100 01/11/21 14:51 91 H 99 01/11/21 14:46 74 98 01/11/21 14:41 83 100 01/11/21 14:36 96 H 99 01/11/21 14:31 74 99 01/11/21 14:28 85 163/80 01/11/21 14:26 69 98 01/11/21 14:21 102 H 100 01/11/21 14:16 104 H 97 01/11/21 14:11 71 98 01/11/21 14:06 70 98 01/11/21 14:01 78 97 01/11/21 13:58 95 H 147/81 01/11/21 13:56 107 H 100 01/11/21 13:51 80 96 01/11/21 13:46 74 94 01/11/21 13:41 87 96 01/11/21 13:36 77 94 01/11/21 13:31 74 94 01/11/21 13:26 79 97 01/11/21 13:24 98 H 163/76 01/11/21 13:21 86 94 01/11/21 13:19 85 182/86 01/11/21 13:16 72 94 01/11/21 13:11 73 97 01/11/21 13:06 86 100 01/11/21 13:01 82 98 01/11/21 12:56 104 H 100 01/11/21 12:51 94 H 100 01/11/21 12:46 105 H 100 01/11/21 12:41 101 H 100 01/11/21 12:36 98 H 167/94 99 01/11/21 12:31 88 95 01/11/21 12:26 87 99 01/11/21 12:21 88 98 01/11/21 12:16 94 H 97 01/11/21 12:13 101 H 141/93 01/11/21 12:11 92 H 96 01/11/21 12:06 88 94 01/11/21 12:01 82 98 01/11/21 11:56 83 96 01/11/21 11:51 104 H 98 01/11/21 11:46 86 100 01/11/21 11:41 105 H 100 01/11/21 11:37 100 H 159/81 01/11/21 11:36 89 99 01/11/21 11:31 90 100 01/11/21 11:26 85 99 01/11/21 11:21 80 100 01/11/21 11:20 98.3 F 01/11/21 11:16 90 99 01/11/21 11:11 88 100 01/11/21 11:06 89 100 01/11/21 11:01 87 100 01/11/21 10:56 98 H 100 01/11/21 10:51 95 H 99 01/11/21 10:46 93 H 100 01/11/21 10:41 95 H 100 01/11/21 10:37 99 H 131/64 01/11/21 10:36 95 H 100 01/11/21 10:31 87 96 01/11/21 10:26 88 100 01/11/21 10:24 153 H 84 01/11/21 10:20 93 H 100 01/11/21 10:15 88 165/75 100 01/11/21 10:10 96 H 99 01/11/21 10:05 101 H 99 01/11/21 10:00 104 H 100 01/11/21 09:55 98 H 100 Intake and Output 01/11/21 01/12/21 01/12/21 22:59 06:59 14:59 Intake Total 1000 895 Output Total 2150 Balance -1150 895 Intake: IV 1000 895 Lactated Ringers 1,000 ml 1000 895 @ 125 mls/hr IV DIRECT [facility] Rx#:[id number] Output: Urine 2150 Indwelling Catheter 2150 Other: Total, Output Amount 450 Estimated Blood Loss 145 - Exam Breasts: Present: normal Abdomen: Present: normal appearance, soft, normal bowel sounds Vulva: both: normal Uterus: Present: normal, firm, fundal height below umbilicus Extremities: Present: normal - Labs Labs: Abnormal lab results 01/11/21 01/11/21 01/11/21 Range/Units 11:07 17:00 20:30 WBC 25.3 H (4.5-11.0) K/mm3 Hgb (10.1-14.3) gm/dl Hct (30.3-42.9) % Seg Neuts % (Manual) 94.0 H (40.0-70.0) % Lymphocytes % (Manual) 5.0 L (13.4-35.0) % Seg Neutrophils # Man 23.8 H (1.8-7.7) K/mm3 Magnesium 5.30 H 4.70 H (1.7-2.3) mg/dL 01/11/21 01/12/21 Range/Units 23:34 05:06 WBC (4.5-11.0) K/mm3 Hgb 9.6 L (10.1-14.3) gm/dl Hct 27.4 L D (30.3-42.9) % Seg Neuts % (Manual) (40.0-70.0) % Lymphocytes % (Manual) (13.4-35.0) % Seg Neutrophils # Man (1.8-7.7) K/mm3 Magnesium 5.10 H (1.7-2.3) mg/dL
[2021-01-12] MEDS ORDERED: MEASLES, MUMPS & RUBELLA 12,500 UNIT/0.5 ML VACCINE SUB-Q ONE (16:38)
[2021-01-12] MEDS: IBUPROFEN 800 MG TAB PO PRN (23:25)
[2021-01-13] MEDS: HYDROcodone/ACETAMINOPHEN 5-325 MG TAB PO PRN ×2 (04:47→11:57)
[2021-01-13] MEDS: FERROUS SULFATE 325 MG TAB PO SCH (09:08)
--- NOTE | 2021-01-13 11:13 | Event Note ---
Date: 01/13/21 Went to patient's room to see patient her for rounds. Patient not in room. Will try again at a later time.
--- NOTE | 2021-01-13 12:12 | Progress Note ---
Assessment and Plan A: day 2 S/P . Preeclampsia with severe features, S/P magnesium sulfate. Anemia. Obesity. P: Recheck blood pressure. CBC, CMP, UA, urine C&S. Continue oral iron supplementation. Continue oral Labetalol. Subjective - Subjective Date of service: 01/13/21 Principal diagnosis: day 2 S/P ; preeclampsia Interval history: Denies headache, visual disturbance, abdominal pain, or N/V. Patient reports: appetite normal, voiding normally, pain well controlled, flatus, ambulating normally, no dizzy ambulation, no nauseated [place]: doing well, in NICU Objective - Vital Signs Latest vital signs: Vital Signs Temp Pulse Resp BP Pulse Ox 01/13/21 08:08 98.2 F 87 20 157/78 100 01/13/21 04:31 98.0 F 75 18 142/81 95 01/12/21 21:46 74 125/74 01/12/21 20:00 98.0 F 79 18 134/69 95 01/12/21 17:20 98.1 F 01/12/21 16:34 81 127/70 01/12/21 16:32 89 98 01/12/21 16:27 88 97 01/12/21 16:22 77 96 01/12/21 16:17 75 99 01/12/21 16:12 81 96 01/12/21 16:07 78 94 01/12/21 16:04 76 126/68 01/12/21 16:02 82 98 01/12/21 15:57 82 97 01/12/21 15:52 81 97 01/12/21 15:47 85 98 01/12/21 15:42 88 96 01/12/21 15:37 86 99 01/12/21 15:34 82 118/66 01/12/21 15:32 88 100 01/12/21 15:27 89 100 01/12/21 15:22 86 99 01/12/21 15:17 79 97 01/12/21 15:12 77 97 01/12/21 15:07 80 98 01/12/21 15:04 85 131/63 01/12/21 15:02 89 100 01/12/21 14:57 75 97 01/12/21 14:52 80 97 01/12/21 14:47 90 100 01/12/21 14:42 86 98 01/12/21 14:37 87 99 01/12/21 14:34 77 110/64 01/12/21 14:32 81 95 01/12/21 14:27 80 96 01/12/21 14:22 82 96 01/12/21 14:17 82 97 01/12/21 14:12 78 97 01/12/21 14:07 85 98 01/12/21 14:04 78 112/60 01/12/21 14:02 83 99 01/12/21 13:57 85 98 01/12/21 13:52 82 99 01/12/21 13:47 85 99 01/12/21 13:42 82 99 01/12/21 13:37 83 98 01/12/21 13:33 74 99/56 01/12/21 13:32 82 98 01/12/21 13:27 84 97 01/12/21 13:22 81 99 01/12/21 13:18 83 109/66 72 L 01/12/21 13:17 83 98 01/12/21 13:12 74 97 01/12/21 13:07 77 98 01/12/21 13:02 85 97 01/12/21 12:57 82 95 01/12/21 12:52 81 97 01/12/21 12:47 77 95 01/12/21 12:42 90 99 01/12/21 12:37 91 H 97 01/12/21 12:32 77 96 01/12/21 12:27 78 96 01/12/21 12:22 82 98 01/12/21 12:17 77 95 01/12/21 12:12 86 98 Intake and Output 01/12/21 01/13/21 01/13/21 23:59 07:59 15:59 Intake Total 1200 300 240 Output Total 120 Balance 1080 300 240 Intake: Oral 1200 240 Intake, Free Water 300 Output: Urine 120 Indwelling Catheter 120 Other: Total, Intake Amount 1200 240 Total, Output Amount 60 # Voids Void 1 1 - Exam Cardiovascular: Present: Regular rate Lungs: Present: Clear to auscultation Abdomen: Present: normal appearance, soft, normal bowel sounds. Absent: distention, tenderness, guarding, rigidity Uterus: Present: normal, firm, fundal height below umbilicus. Absent: bogginess, tenderness Extremities: Present: edema. Absent: tenderness
[2021-01-13 12:21] LABS: Basophils % (Auto) 0.4 % (0.0-1.8); Eosinophils # (Auto) 0.1 K/mm3 (0.0-0.4); Hematocrit 30.1 % (30.3-42.9); Hemoglobin 9.8 gm/dl (10.1-14.3); Lymphocytes # (Auto) 2.1 K/mm3 (1.2-5.4); Lymphocytes % (Auto) 18.1 % (13.4-35.0); Mean Corpuscular HGB Conc 33 % (30-34); Mean Corpuscular Volume 90 fl (79-97); Monocytes % (Auto) 8.3 % (0.0-7.3); Platelet Count 256 K/mm3 (140-440); Red Blood Count 3.37 M/mm3 (3.65-5.03)
[2021-01-13 12:26] LABS: Alanine Aminotransferase 8 units/L (7-56); Albumin 3.3 g/dL (3.9-5); Blood Urea Nitrogen 9 mg/dL (7-17); Calcium 9.2 mg/dL (8.4-10.2); Hemolysis Index 3
[2021-01-13 12:29] LABS: BUN/Creatinine Ratio 15
[2021-01-13 13:51] LABS: Bilirubin,Urine NEG (Negative); Blood,Urine LG (Negative); Color,Urine Yellow (Yellow); Mucus,Urine FEW /HPF
[2021-01-13 13:59] LABS: RBC,Urine > 182.0 /HPF (0.0-6.0)
[2021-01-13] MEDS: IBUPROFEN 800 MG TAB PO PRN (20:38)
[2021-01-14] MEDS: HYDROcodone/ACETAMINOPHEN 5-325 MG TAB PO PRN ×2 (08:14→16:28)
[2021-01-14] MEDS: FERROUS SULFATE 325 MG TAB PO SCH (09:50)
[2021-01-14] MEDS: hydrALAZINE 20 MG/1 ML INJ IV PRN (17:16)
[2021-01-14] MEDS: IBUPROFEN 800 MG TAB PO PRN (23:23)
--- NOTE | 2021-01-15 09:44 | Progress Note ---
Assessment and Plan A: day 4 S/P . Preeclampsia, S/P magnesium sulfate. Anemia. P: Discharge patient home today. Discharge home cleared by Dr. Alcantara. Discussed with patient discharge instructions and warning signs. Advised patient to continue taking Labetalol 200 mg po BID at home (Rx Called to [facility] on [address]). Advised patient to continue taking vitamin and iron supplements at home. Advised patient to follow up at [facility] office in 24 to 48 hours for BP check. Advised patient to avoid IC, lifting, housework, and driving. Patient voiced understanding of all instructions. Subjective - Subjective Date of service: 01/15/21 Principal diagnosis: day 4 S/P ; preeclampsia Interval history: Denies headache, visual disturbance, abdominal pain, or N/V. Patient reports: appetite normal, voiding normally, pain well controlled, flatus, ambulating normally, no dizzy ambulation, no nauseated [place]: in NICU Objective - Vital Signs Latest vital signs: Vital Signs Temp Pulse Resp BP BP Pulse Ox 01/15/21 08:15 98.2 F 77 20 155/77 01/15/21 04:35 98.2 F 78 20 137/61 93 01/15/21 00:05 98.1 F 81 20 132/64 96 01/14/21 22:15 90 148/70 01/14/21 22:03 98.3 F 94 H 18 148/70 98 01/14/21 18:47 92 H 139/70 01/14/21 17:16 80 187/94 01/14/21 16:30 98.2 F 81 18 184/89 96 01/14/21 16:28 16 Intake and Output 01/14/21 01/15/21 01/15/21 23:59 07:59 15:59 Intake Total 480 240 Balance 480 240 Intake: Oral 360 240 Intake, Free Water 120 Other: Total, Intake Amount 360 240 # Voids Void 1 1 - Exam Cardiovascular: Present: Regular rate Lungs: Present: Clear to auscultation Abdomen: Present: normal appearance, soft. Absent: distention, tenderness, guarding, rigidity Uterus: Present: normal, firm, fundal height below umbilicus. Absent: bogginess, tenderness Extremities: Present: normal. Absent: tenderness
--- NOTE | 2021-01-15 10:04 | Discharge Summary ---
Providers - Providers Date of Admission: 01/10/21 14:28 Date of discharge: 01/15/21 Attending physician: ELAINA RAI MD Primary care physician: ELAINA RAI MD Hospitalization Reason for admission: induction of labor Delivery: Episiotomy: none Laceration: none Other procedures: none complications: none Discharge diagnosis: delivery [address] baby: male Pertinent studies: Labs Hospital course: Stable hospital course Condition at discharge: Good Disposition: DC-01 TO HOME OR SELFCARE - Discharge Diagnoses (1) delivery, delivered Status: Acute (2) Anemia Status: Acute Plan - Provider Discharge Summary Activity: routine, no sex for 6 weeks, no heavy lifting 4 weeks, no strenuous exercise Diet: routine Instructions: routine Additional instructions: Continue taking your vitamins and iron supplements at home. Continue taking Labetalol 200 mg by mouth every 12 hours at home (Rx has been called to [facility] pharmacy). Follow up at [facility] clinic in 24 to 48 hours for BP check. Call your doctor immediately for: * Fever > 100.5 * Heavy vaginal bleeding ( >1 pad per hour) * Severe persistent headache * Shortness of breath * Reddened, hot, painful area to leg or breast - Follow up plan Follow up: ELAINA RAI MD [Primary Care Provider] - 48 Hours
[2021-01-15] MEDS: FERROUS SULFATE 325 MG TAB PO SCH (10:13)
[2021-01-15 13:16] VITALS: BP 125/64
== END 2021-01-15 13:20 | disposition home or self-care (01) | DRG 807 ==
LOC: TRG 11:21 → APU 11:23 → LD 14:28 → OBSVTOIN 14:28 → TRG 14:28 → UNDOADMOB 15:01 → LD 15:01 → OB 01-12 17:26
PROC: 10E0XZZ Delivery of Products of Conception, External Approach (ICD-10-PCS; principal; 2021-01-11)
PROC: 0U7C7ZZ Dilation of Cervix, Via Natural or Artificial Opening (ICD-10-PCS; 2021-01-11)
PROC: 10907ZC Drainage of Amniotic Fluid, Therapeutic from Products of Conception, Via Natural or Artificial Opening (ICD-10-PCS; 2021-01-11)
PROC: 3E0P7VZ Introduction of Hormone into Female Reproductive, Via Natural or Artificial Opening (ICD-10-PCS; 2021-01-11)
DX: O11.4 Pre-existing hypertension with pre-eclampsia, complicating childbirth (principal); Z37.0 Single live birth; O60.14X0 Preterm labor third trimester with preterm delivery third trimester, not applicable or unspecified; O10.92 Unspecified pre-existing hypertension complicating childbirth; Z3A.35 35 weeks gestation of pregnancy; Z20.822 Contact with and (suspected) exposure to COVID-19; O99.214 Obesity complicating childbirth; E66.9 Obesity, unspecified; O09.523 Supervision of elderly multigravida, third trimester; O90.81 Anemia of the puerperium; D64.9 Anemia, unspecified; O13.4 Gestational [pregnancy-induced] hypertension without significant proteinuria, complicating childbirth
CPT/HCPCS: 36415; 59200; 80053; 81001; 82565; 83615; 83735; 84450; 84460; 84550; 85007; 85014; 85018; 85025; 85027; 86592; 86706; 86762; 86850; 86900; 86901; 87040; 87086; 87806; 88307; 99211; G0378; G0463; J0290; J0360; J0595; J2590; J3475; J7120; U0003

== ENCOUNTER 2021-04-25 11:00 | Outpatient (CLI) | payer MEDICAID | END 2021-04-25 11:01 | disposition home or self-care (01) | LOC: SLR 11:00 | PROVIDERS: ATTEND Internal Medicine | DX: G47.30 Sleep apnea, unspecified (principal) | CPT/HCPCS: G0399 ==

== ENCOUNTER 2021-05-05 13:39 | Outpatient (CLI) | payer MEDICAID ==
[2021-05-05 14:06] LABS: Basophils # (Auto) 0.1 K/mm3 (0.0-0.1); Basophils % (Auto) 1.3 % (0.0-1.8); Eosinophils # (Auto) 0.2 K/mm3 (0.0-0.4); Hematocrit 38.5 % (30.3-42.9); Hemoglobin 12.5 gm/dl (10.1-14.3); Lymphocytes # (Auto) 2.8 K/mm3 (1.2-5.4); Lymphocytes % (Auto) 31.1 % (13.4-35.0); Mean Corpuscular HGB Conc 32 % (30-34); Mean Corpuscular Volume 88 fl (79-97); Monocytes # (Auto) 0.5 K/mm3 (0.0-0.8); Monocytes % (Auto) 5.5 % (0.0-7.3); Platelet Count 252 K/mm3 (140-440); Red Blood Count 4.35 M/mm3 (3.65-5.03); Red Cell Distribution Width 13.6 % (13.2-15.2)
[2021-05-05 14:12] LABS: ABG Base Excess -2.7 mmol/L (-2.0-3.0); ABG HCO3 21.8 mmol/L (20.0-26.0); ABG Methemoglobin 0.4 % (0.0-1.5); ABG Oxygen Saturation 96.8 % (95.0-99.0); ABG PCO2 36.8 mm Hg; ABG PH 7.39 pH Units (7.350-7.450); ABG PO2 89.5 mm Hg (80.0-90.0)
[2021-05-05 14:30] LABS: Alanine Aminotransferase 15 units/L (7-56); Albumin 3.9 g/dL (3.9-5); Blood Urea Nitrogen 16 mg/dL (7-17); Calcium 9.3 mg/dL (8.4-10.2); HDL Cholesterol 62 mg/dL (40-59); Hemolysis Index 11; LDL Cholesterol,Direct 138 mg/dL (50-130)
[2021-05-05 14:31] LABS: BUN/Creatinine Ratio 23
--- NOTE | 2021-05-05 14:48 | XRay Report ---
CHEST 2 VIEWS INDICATION / CLINICAL INFORMATION: SLEEP APNEA. COMPARISON: None available. FINDINGS: SUPPORT DEVICES: None. HEART / MEDIASTINUM: No significant abnormality. LUNGS / PLEURA: No significant pulmonary or pleural abnormality. No pneumothorax. ADDITIONAL FINDINGS: No significant additional findings. IMPRESSION: 1. No acute findings. Signer Name: Anselmo Camacho MD Signed: 05/05/2021 2:43 PM Workstation Name: [id number]
== END 2021-05-05 13:40 | disposition home or self-care (01) ==
LOC: XRAY 13:39
PROVIDERS: ATTEND Internal Medicine
DX: G47.33 Obstructive sleep apnea (adult) (pediatric) (principal); F32.9 Major depressive disorder, single episode, unspecified; I10 Essential (primary) hypertension; K21.9 Gastro-esophageal reflux disease without esophagitis; Z68.41 Body mass index [BMI] 40.0-44.9, adult
CPT/HCPCS: 36415; 71046; 80053; 80061; 82803; 84436; 84443; 85025

== ENCOUNTER 2021-05-26 11:00 | Outpatient (CLI) | payer MEDICAID | END 2021-05-26 11:01 | disposition home or self-care (01) | LOC: SLR 11:00 | PROVIDERS: ATTEND Internal Medicine | DX: G47.30 Sleep apnea, unspecified (principal) | CPT/HCPCS: 95811 ==

== ENCOUNTER 2021-08-07 12:06 | Outpatient (CLI) | payer MEDICAID ==
[2021-08-07 13:24] LABS: Basophils % (Auto) 0.5 % (0.0-1.8); Eosinophils # (Auto) 0.1 K/mm3 (0.0-0.4); Eosinophils % (Auto) 1.2 % (0.0-4.3); Hematocrit 38.2 % (30.3-42.9); Hemoglobin 12.2 gm/dl (10.1-14.3); Lymphocytes # (Auto) 2.5 K/mm3 (1.2-5.4); Lymphocytes % (Auto) 29.3 % (13.4-35.0); Mean Corpuscular HGB Conc 32 % (30-34); Mean Corpuscular Volume 91 fl (79-97); Monocytes # (Auto) 0.7 K/mm3 (0.0-0.8); Monocytes % (Auto) 7.9 % (0.0-7.3); Platelet Count 276 K/mm3 (140-440); Red Blood Count 4.19 M/mm3 (3.65-5.03); Red Cell Distribution Width 13.1 % (13.2-15.2)
[2021-08-07 13:41] LABS: Alanine Aminotransferase 10 units/L (7-56); Blood Urea Nitrogen 7 mg/dL (7-17); Calcium 9.4 mg/dL (8.4-10.2); Chol/HDL Ratio 3.22 %; HDL Cholesterol 58 mg/dL (40-59); Hemolysis Index 5; Iron 70 ug/dL (37-170); LDL Cholesterol,Direct 120 mg/dL (50-130); Total Iron Binding Capacity 348 mcg/dL (250-450)
[2021-08-07 13:45] LABS: BUN/Creatinine Ratio 12
[2021-08-10 13:09] LABS: Vitamin D, 25-OH, D2 <4 ng/mL
== END 2021-08-07 12:07 | disposition home or self-care (01) ==
LOC: LAB 12:06
PROVIDERS: ATTEND Surgery
DX: Z01.812 Encounter for preprocedural laboratory examination (principal); Z13.21 Encounter for screening for nutritional disorder; Z13.29 Encounter for screening for other suspected endocrine disorder; Z13.1 Encounter for screening for diabetes mellitus; E66.01 Morbid (severe) obesity due to excess calories; K30 Functional dyspepsia; E55.9 Vitamin D deficiency, unspecified
CPT/HCPCS: 36415; 80053; 80061; 82306; 82607; 82728; 83036; 83550; 84443; 85025; 85730

== ENCOUNTER 2021-08-08 09:50 | Day surgery (SDC) | payer MEDICAID ==
--- NOTE | 2021-08-08 08:37 | Anesthesia Day of Surgery ---
Anesthesia Day of Surgery - Day of Surgery Patient Examined: Yes Patient H&P Reviewed: Yes Patient is NPO: Yes
--- NOTE | 2021-08-08 08:38 | Anesthesia Consultation ---
Anesthesia Consult and Med Hx Date of service: 08/08/21 - Airway Anesthetic Teeth Evaluation: Good ROM Head & Neck: Adequate Mental/Hyoid Distance: Adequate Mallampati Class: Class II Intubation Access Assessment: Probably Good - Pre-Operative Health Status ASA Pre-Surgery Classification: ASA3 Proposed Anesthetic Plan: MAC - Pulmonary Hx Smoking: No Hx Asthma: No COPD: No Hx Pneumonia: No Hx Sleep Apnea: Yes - Cardiovascular System Hx Hypertension: Yes - Central Nervous System Hx Seizures: No Hx Psychiatric Problems: No - Gastrointestinal Hx Gastroesophageal Reflux Disease: Yes - Endocrine Hx Renal Disease: No Hx End Stage Renal Disease: No Hx Hypothyroidism: No Hx Hyperthyroidism: No - Hematic Hx Anemia: No Hx Sickle Cell Disease: No - Other Systems Hx Alcohol Use: No Hx Obesity: Yes
--- NOTE | 2021-08-08 08:53 | Discharge Summary ---
Providers - Providers Date of Admission: 08/08/2021 Date of discharge: 08/08/21 Attending physician: TOBIAS ZHU MD Primary care physician: SU GANNON Hospitalization Reason for admission: pre-op planning egd Condition: Good Procedures: egd with bx Hospital course: Pt presented for a pre-op EGD as part of planning for up coming bariatric surgery. Procedure was uneventful and pt recovered well and was discharged to home. Disposition: 01 HOME / SELF CARE / HOMELESS Final Discharge Diagnosis (Prints w/discharge instructions): morbid obesity, gerd Core Measure Documentation - Palliative Care Palliative Care/ Comfort Measures: Not Applicable - Core Measures Any of the following diagnoses?: none Exam - Physical Exam Narrative exam: unchanged from pre-op Plan Activity: advance as tolerated Diet: low carbohydrate Follow up with: SU GANNON MD [Primary Care Provider] - 7 Days
--- NOTE | 2021-08-08 08:54 | Operative Report ---
Operative Report Operative Report: DATE: 08/08/2021 SURGERY: Upper endoscopy. SURGEON: Mirlande Denise M.D. PROCEDURE: EGD with biopsy PRE OP DX: morbid obesity, GERD POST OP DX: morbid obesity, GERD TYPE OF ANESTHESIA: MAC. ESTIMATED BLOOD LOSS: None. COMPLICATIONS: None. SPECIMENS REMOVED: antral biopsy FINDINGS: 1. Small hiatal hernia. 2. mild antral gastritis INDICATIONS:INDICATION FOR PROCEDURE: Patient is a 36-year-old female with a long history of morbid obesity. She is planned to have a weight loss procedure and is here for preoperative planning EGD. PROCEDURE DETAILS: After consent was reviewed, patient was taken back to the operating room where patient was placed in the left lateral decubitus position and a bite block was placed in the mouth. After a time-out was called, MAC anesthesia was initiated. I then passed the endoscope into her oropharynx, into her esophagus, visualized the entire esophagus, which was all within normal limits. Z-line was noted to about 35cm from incisors. I then visualized the stomach and the first portion of the duodenum and there were no abnormalities I could clearly visualize except for antral gastritis. A cold forceps biopsy of the antrum was taken and will be sent to pathology to evaluate for H.pylori. I then retroflexed the scope in the stomach and visualized the hiatus and I could see a small hiatal hernia. I then desufflated the stomach and removed the endoscope. Patient tolerated procedure well and was transferred to recovery room in good and stable condition.
[~2021-08-08 09:50] MED LIST: LIDOCAINE MPF (2%) 20 MG/1 ML VIAL 5 ML ONE; SODIUM CHLORIDE 0.9% 1000 ML 1,000 ML IV SCH; propofoL 200 MG/20 ML VIAL IV ONE
[2021-08-08 12:06] VITALS: BP 125/77
== END 2021-08-08 10:00 | disposition home or self-care (01) ==
LOC: GIO 09:50
PROVIDERS: ATTEND Surgery
DX: E66.01 Morbid (severe) obesity due to excess calories (principal); K21.9 Gastro-esophageal reflux disease without esophagitis; K44.9 Diaphragmatic hernia without obstruction or gangrene; K29.50 Unspecified chronic gastritis without bleeding; K31.89 Other diseases of stomach and duodenum; G47.30 Sleep apnea, unspecified; I10 Essential (primary) hypertension; D64.9 Anemia, unspecified; Z80.0 Family history of malignant neoplasm of digestive organs; Z79.899 Other long term (current) drug therapy; Z98.890 Other specified postprocedural states; Z68.41 Body mass index [BMI] 40.0-44.9, adult
CPT/HCPCS: 43239; 81025; 88305; 88342; J2704; J3490; J7030; J7120; Q0162

== ENCOUNTER 2021-09-01 08:42 | Outpatient (CLI) | payer MEDICAID ==
--- NOTE | 2021-09-01 10:25 | Fluoroscopy Report ---
BARIUM SWALLOW Indication: FUNCTIONAL DYSPEPSIA K30. Technique: Single and double contrast barium technique utilized to evaluate the esophagus. FINDINGS: To begin the exam, swallowing was evaluated in the lateral position under direct fluorosco py. Swallowing was normal. No mucosal irregularity, mass, mass effect, or critical stenosis. There were no abnormal tertiary c ontractions as seen with dysmotility. No gastroesophageal reflux. IMPRESSION: Unremarkable exam. Fluoroscopic time: 1 minute Number of fluoroscopic images: 23 Signer Name: Bello Mcdonough Jr, MD Signed: 09/01/2021 10:21 AM Workstation Name: [id number]
== END 2021-09-01 08:43 | disposition home or self-care (01) ==
LOC: FLUORO 08:42
PROVIDERS: ATTEND Surgery
DX: K30 Functional dyspepsia (principal)
CPT/HCPCS: 74220

== ENCOUNTER 2021-12-22 09:59 | Outpatient (CLI) | payer MEDICAID ==
--- NOTE | 2021-12-22 11:29 | XRay Report ---
CHEST 2 VIEWS INDICATION / CLINICAL INFORMATION: Z01.818 ENCOUNTER FOR OTHER PREPROCEDURAL EXAMINATION. COMPARISON: 05/05/21. FINDINGS: SUPPORT DEVICES: None. HEART / MEDIASTINUM: The heart size and pulmonary vasculature are normal. LUNGS / PLEURA: No significant pulmonary or pleural abnormality. No pneumothorax. ADDITIONAL FINDINGS: No significant additional findings. IMPRESSION: No acute abnormality or significant change. Signer Name: Korey Drake MD Signed: 12/22/2021 11:25 AM Workstation Name: [id number]
== END 2021-12-22 10:00 | disposition home or self-care (01) ==
LOC: XRAY 09:59
PROVIDERS: ATTEND Surgery
DX: Z01.818 Encounter for other preprocedural examination (principal); E66.01 Morbid (severe) obesity due to excess calories
CPT/HCPCS: 71046

== ENCOUNTER 2022-01-24 07:40 | Inpatient (IN) | payer MEDICAID ==
[2022-01-22 09:31] LABS: Hematocrit 37.1 % (30.3-42.9); Hemoglobin 11.9 gm/dl (10.1-14.3); Mean Corpuscular HGB Conc 32 % (30-34); Mean Corpuscular Volume 92 fl (79-97); Platelet Count 250 K/mm3 (140-440); Red Blood Count 4.04 M/mm3 (3.65-5.03); Red Cell Distribution Width 13.4 % (13.2-15.2)
[2022-01-22 09:51] LABS: Alanine Aminotransferase 11 units/L (7-56); Albumin 4.2 g/dL (3.9-5); Blood Urea Nitrogen 13 mg/dL (7-17); Calcium 9.6 mg/dL (8.4-10.2); Hemolysis Index 5
[2022-01-22 10:01] LABS: BUN/Creatinine Ratio 19
--- NOTE | 2022-01-22 17:30 | Anesthesia Consultation ---
Anesthesia Consult and Med Hx Date of service: 01/24/22 - Airway Anesthetic Teeth Evaluation: Good ROM Head & Neck: Adequate Mental/Hyoid Distance: Adequate Mallampati Class: Class III Intubation Access Assessment: Probably Good - Pre-Operative Health Status ASA Pre-Surgery Classification: ASA3 Proposed Anesthetic Plan: General - Pulmonary Hx Smoking: No Hx Asthma: No Hx Respiratory Symptoms: No (+2FS) COPD: No Hx Pneumonia: No Hx Sleep Apnea: Yes - Cardiovascular System Hx Hypertension: Yes - Central Nervous System Hx Seizures: No Hx Psychiatric Problems: Yes (Depression) - Gastrointestinal Hx Gastroesophageal Reflux Disease: Yes - Endocrine Hx Renal Disease: No Hx End Stage Renal Disease: No Hx Hypothyroidism: No Hx Hyperthyroidism: No - Hematic Hx Anemia: No Hx Sickle Cell Disease: No - Other Systems Hx Alcohol Use: No Hx Cancer: No Hx Obesity: Yes - Additional Comments Anesthesia Medical History Comments: Clearances reviewed
[~2022-01-24 07:40] MED LIST changes: +ENOXAPARIN 40 MG/0.4 ML INJ SUB-Q NR; +GABAPENTIN 500 MG/10 ML ORAL LIQD PO SCH; +LACTATED RINGERS 1,000 ML IV SCH; -LIDOCAINE MPF (2%) 20 MG/1 ML VIAL 5 ML ONE; +MIDAZOLAM 2 MG/2 ML INJ IV NR; +SCOPOLAMINE TRANSDERMAL PATCH 72 HR TD SCH; -SODIUM CHLORIDE 0.9% 1000 ML 1,000 ML IV SCH; +methOCARBAMOL 1,000 MG in SODIUM CHLORIDE 0.9% 250ML 250 ML IV SCH; +metroNIDAZOLE/NS 500 MG/100 ML 500 MG/100 ML BAG IV NR; -propofoL 200 MG/20 ML VIAL IV ONE
[2022-01-24] MEDS ORDERED: ENOXAPARIN 40 MG/0.4 ML INJ SUB-Q NR (08:00)
[2022-01-24] MEDS ORDERED: ENOXAPARIN 40 MG/0.4 ML INJ SUB-Q ONE (08:58)
[2022-01-24] MEDS ORDERED: metroNIDAZOLE/NS 500 MG/100 ML 500 MG/100 ML BAG IV ONE (09:29)
[2022-01-24] MEDS ORDERED: metroNIDAZOLE/NS 500 MG/100 ML 500 MG/100 ML BAG IV NR (09:30)
[2022-01-24] MEDS ORDERED: HYDROmorphone 0.5 MG/0.5 ML INJ IV PRN ×3 (09:53→13:40)
[2022-01-24] MEDS ORDERED: ONDANSETRON 4 MG/2 ML INJ IV PRN ×2 (09:53→13:40)
--- NOTE | 2022-01-24 09:53 | Anesthesia Day of Surgery ---
Anesthesia Day of Surgery - Day of Surgery Patient Examined: Yes Patient H&P Reviewed: Yes Patient is NPO: Yes
[2022-01-24] MEDS ORDERED: MIDAZOLAM 2 MG/2 ML INJ ONE (10:36)
[2022-01-24] MEDS ORDERED: KETAMINE/STERILE WATER 50 MG/ML SYRINGE ONE (10:36)
[2022-01-24] MEDS ORDERED: LIDOCAINE PF 100 MG/5 ML (CARDIAC SYRINGE) IV ONE ×3 (10:36→11:55)
[2022-01-24] MEDS ORDERED: ROCURONIUM 50 MG/5 ML INJ IV ONE ×2 (10:36→11:54)
[2022-01-24] MEDS ORDERED: LIDOCAINE (1%) 10 MG/1 ML VIAL 20 ML MDV ONE (10:38)
[2022-01-24] MEDS ORDERED: BUPIVACAINE/PF (0.25%) 2.5 MG/ML 30 ML VIAL INFILTRATI ONE ×2 (10:39→12:46)
[2022-01-24] MEDS ORDERED: LIDOCAINE 2%/EPINEPHRINE 1:200,000 VIAL (20 ML) INFILTRATI ONE (10:41)
[2022-01-24] MEDS ORDERED: MAGNESIUM SULFATE 4 GM/100 ML BAG IV ONE (10:45)
[2022-01-24] MEDS: ACETAMINOPHEN IV 1,000 MG/100 ML BOTTLE IV SCH ×4 (10:56→23:42)
[2022-01-24] MEDS ORDERED: propofoL 200 MG/20 ML VIAL IV ONE ×3 (11:43)
[2022-01-24] MEDS ORDERED: ePHEDrine SULFATE 50 MG/1 ML INJ ONE (11:50)
[2022-01-24] MEDS ORDERED: ONDANSETRON 4 MG/2 ML INJ ONE (11:55)
[2022-01-24] MEDS ORDERED: LACTATED RINGERS 1,000 ML ONE (11:55)
[2022-01-24] MEDS ORDERED: dexAMETHasone 20 MG/5 ML VIAL ONE (11:55)
[2022-01-24] MEDS ORDERED: KETOROLAC 30 MG/1 ML INJ ONE (11:55)
[2022-01-24] MEDS ORDERED: SUGAMMADEX SODIUM 200 MG/2 ML VIAL IV ONE (12:40)
[2022-01-24] MEDS ORDERED: LIDOCAINE 2%/EPINEPHRINE 1:100,000 VIAL (20 ML) INFILTRATI ONE (12:46)
[2022-01-24] MEDS ORDERED: SODIUM CHLORIDE 0.9% IRR 1,500 ML BOTTLE IR ONE (12:47)
[2022-01-24] MEDS ORDERED: hydrALAZINE 20 MG/1 ML INJ IV PRN (13:40)
[2022-01-24] MEDS ORDERED: HYDROcodone/Acetaminophen 7.5-325MG-15ML ORAL LIQD PO PRN (13:40)
[2022-01-24] MEDS ORDERED: SIMETHICONE 80 MG CHEW TAB PO PRN (13:40)
[2022-01-24] MEDS ORDERED: LACTATED RINGERS 1,000 ML IV SCH (13:45)
--- NOTE | 2022-01-24 13:48 | Operative Report ---
Operative Report Operative Report: DATE:01/24/2022 Surgeon: Mirlande Denise MD Locomotive Switch Operator surgeon:Dia Guevara CSA MD Pre-op Dx: morbid obesity Post-op Dx: morbid obesity Procedure: 1. laparoscopic sleeve gastrectomy, 2. hiatal hernia repair Anesthesia: GETA and TAP block EBL: <20ml Specimen: gastric remnant Complication: none immediate Indication: 36 year old female with a history of morbid obesity . Pt is here for sleeve gastrectomy for weight loss to achieve healthier weight and improve or resolve his co-morbidities. Shee expressed understanding of the risks and benefits. PROCEDURE IN DETAIL: After consent was reviewed, patient was taken back to the operating room, where patient was placed supine on the bed with both arms out. The patient's legs were doubly strapped to the bed. Patient had a foot board in place. Patient had a body warmer placed by anesthesia. General anesthesia was induced with successful endotracheal intubation. Patient was then prepped and draped in normal sterile surgical fashion. After a time-out was called, I made a stab incision in the left subcostal area and placed a Veress needle through this incision and insufflated the abdomen to 15 mmHg pressure. I then counted down a handsbreadth below the xiphoid process in the midline and slightly left lateral injected local anesthetic and made about 1 cm transverse incision. I then used a 5-mm Optiview trocar to enter into the abdomen. There was no gross injury to any intra-abdominal structures. I then placed a 30-degree scope through this port and inspected the abdomen. I then placed a 5-mm port in the right upper quadrant, and one 5mm in the epigastric area below the costovertebral angle. I then placed a 15-mm port about a handsbreadth in the right mid abdomen. After which a 5mm port was placed in left upper quadrant port along the anterior axillary line in a similar fashion. A liver retractor was placed to the epigastric port to elevate the left lateral lobe and liver. There was a small hiatal hernia appreciated that was accentuated with right and left crural dissection. Hiatal hernia sac was dissected from the crura until the GE junction was resting about 2cm below the level of the diaphragm without tension. An anterior crura-plasty was preformed a U-stitch using surgidac suture. The anterior gastric fat pad was excised. Starting approximately 6 cm proximal to the pylorus, using a Enseal device the short gastrics were taken all the way to the left bull. Once the lateral portion of the stomach was mobile anesthesia passed a 40 [place] bougie along the medial aspect to act as a stent. Using serial firings of endoscopic stapler to gold, followed by 4 blue, the lateral portion of the stomach was transected making sure to did not close to the 2 cm to the incisura. All staple loads were supported with Ethicon buttress strips. The sleeve stomach was seen to be without kink obstruction or twisting. The pre ssure was decreased to 10 mmHg. The staple line was inspected for approximately 5 minutes. There was no significant bleeding appreciated except for a slight ooze at the most distal portion of the staple line. Bleeding was minimal and easily controlled with minimal cautery. Vistaseal was then sprayed along the entirety of the staple line. The liver retractor was removed. A TAP block was performed with 60ml of 0.25% marcaine along bilateral mid axillary lines starting from the subcostal region to just below the level of the umbilicus This was after the gastric remnant was grasped and pulled into the 15 mm trocar site. The stomach was extracted via the 15 mm trocar site. After the fascia had to be stretched with a Francheska clamp to easily remove the stomach, the fascia was closed using a burke alvina device at the level of the fascia with an 0 PDS. trocars were removed under direct visualization. All skin incisions were closed with 4-0 Monocryl followed by Dermabond. Patient was awoken, extubated, and taken to recovery stable condition. All counts were correct.
[2022-01-24] MEDS: PANTOPRAZOLE 40 MG INJ IV SCH (15:25)
--- NOTE | 2022-01-24 16:53 | Post Anesthesia Evaluation ---
- Post Anesthesia Evaluation Patient Participated: Yes Airway Patent: Yes Stable Respiratory Function: Yes Nausea/Vomiting: No Temp > 96.8F: Yes Pain Manageable: Yes Adequeate Hydration: Yes Anesthesia Complications: No Block Receding Appropriately: Not Applicable Patient on Ventilator: No
[2022-01-24] MEDS: METOCLOPRAMIDE 10 MG/2 ML INJ IV PRN ×2 (16:56→23:14)
[2022-01-24] MEDS: KETOROLAC 30 MG/1 ML INJ IV SCH (19:39)
[2022-01-24] MEDS: metroNIDAZOLE/NS 500 MG/100 ML 500 MG/100 ML BAG IV SCH (19:39)
[2022-01-24] MEDS: ceFAZolin/NS 1 GM/50 ML 1 GM/50 ML BAG IV SCH (23:00)
[2022-01-25] MEDS: ACETAMINOPHEN IV 1,000 MG/100 ML BOTTLE IV SCH ×3 (01:04→11:33)
[2022-01-25] MEDS: metroNIDAZOLE/NS 500 MG/100 ML 500 MG/100 ML BAG IV SCH ×2 (03:45→11:33)
[2022-01-25] MEDS: KETOROLAC 30 MG/1 ML INJ IV SCH ×3 (05:00→14:34)
[2022-01-25 05:32] LABS: Basophils % (Auto) 0.1 % (0.0-1.8); Hematocrit 37.5 % (30.3-42.9); Hemoglobin 12.2 gm/dl (10.1-14.3); Lymphocytes # (Auto) 1.2 K/mm3 (1.2-5.4); Lymphocytes % (Auto) 12.9 % (13.4-35.0); Mean Corpuscular HGB Conc 33 % (30-34); Mean Corpuscular Volume 91 fl (79-97); Monocytes # (Auto) 0.6 K/mm3 (0.0-0.8); Platelet Count 269 K/mm3 (140-440); Red Blood Count 4.12 M/mm3 (3.65-5.03)
[2022-01-25] MEDS: METOCLOPRAMIDE 10 MG/2 ML INJ IV PRN (05:33)
[2022-01-25 05:45] LABS: Alanine Aminotransferase 25 units/L (7-56); Albumin 4.5 g/dL (3.9-5); BUN/Creatinine Ratio 9; Blood Urea Nitrogen 6 mg/dL (7-17); Calcium 9.9 mg/dL (8.4-10.2); Hemolysis Index 1
[2022-01-25] MEDS: ceFAZolin/NS 1 GM/50 ML 1 GM/50 ML BAG IV SCH (06:36)
[2022-01-25] MEDS ORDERED: ENOXAPARIN 40 MG/0.4 ML INJ SUB-Q SCH (10:00)
[2022-01-25] MEDS ORDERED: FLUOXETINE HCL 20 MG PO SCH (10:00)
[2022-01-25] MEDS ORDERED: FLUoxetine 20 MG CAP PO SCH (10:00)
[2022-01-25] MEDS: PANTOPRAZOLE 40 MG INJ IV SCH (10:18)
[2022-01-25 13:00] VITALS: BP 137/83
--- NOTE | 2022-01-25 14:02 | Discharge Summary ---
Providers - Providers Date of Admission: 01/24/22 07:40 Date of discharge: 01/25/22 Attending physician: TOBIAS ZHU MD 01/24/22 13:40 Physical Therapy Evaluation and Treat [CONS] Routine Comment: Reason For Exam: s/p bariatric surgery eval Primary care physician: SU GANNON Hospitalization Reason for admission: s/p bariataric surgery Condition: Good Procedures: lap gastric sleeve with hiatal hernia repair Hospital course: Pt had an uneventful laparoscopic sleeve gastrectomy with hiatal hernia repair for treatment of morbid obesity and reflux. Patient recovered well tolerating clear liquids, ambulating independently with pain well-controlled. Patient had laboratory values and vital signs with an acceptable limits. Patient was discharged on postop day #1 showing no gross clinical signs of leak or bleeding. Patient will follow-up in the office in 2 weeks. Disposition: 01 HOME / SELF CARE / HOMELESS Final Discharge Diagnosis (Prints w/discharge instructions): morbid obesity, GERD Core Measure Documentation - Palliative Care Palliative Care/ Comfort Measures: Not Applicable - Core Measures Any of the following diagnoses?: none Exam - Constitutional Vitals: Temp Pulse Resp BP Pulse Ox 98.4 F 91 H 18 137/83 96 01/25/22 12:08 01/25/22 12:08 01/25/22 12:08 01/25/22 12:08 01/25/22 12:08 General appearance: Present: no acute distress, obese - EENT Eyes: Present: PERRL ENT: hearing intact - Respiratory Respiratory effort: normal - Cardiovascular Heart Sounds: Present: S1 & S2 - Extremities Extremities: no ischemia - Abdominal General gastrointestinal: Present: soft, other (Incisions clean dry and intact, appropriately tender to palpation) Plan Activity: advance as tolerated Diet: clear liquids Wound: open to air, keep clean and dry Follow up with: SU GANNON MD [Primary Care Provider] - 7 Days
== END 2022-01-25 15:46 | disposition home or self-care (01) | DRG 621 ==
LOC: 3A 07:40 → EDSTATUS 10:45 → 4A 14:54
PROVIDERS: ADMIT Surgery; ATTEND Surgery
PROC: 0DB64Z3 Excision of Stomach, Percutaneous Endoscopic Approach, Vertical (ICD-10-PCS; principal; 2022-01-24)
PROC: 0BQT4ZZ Repair Diaphragm, Percutaneous Endoscopic Approach (ICD-10-PCS; 2022-01-24)
DX: E66.01 Morbid (severe) obesity due to excess calories (principal); Z68.42 Body mass index [BMI] 45.0-49.9, adult; I10 Essential (primary) hypertension; K21.9 Gastro-esophageal reflux disease without esophagitis; K44.9 Diaphragmatic hernia without obstruction or gangrene; Z20.822 Contact with and (suspected) exposure to COVID-19
CPT/HCPCS: 36415; 80053; 84703; 85025; 85027; 88307; 88342; 94760; G0378; J3490; J7121; J7517; C9113; J0131; J0360; J0690; J1100; J1170; J1650; J1885; J2001; J2250; J2405; J2704; J2765; J3475; J7120; U0003

== ENCOUNTER 2022-03-06 10:41 | Outpatient (CLI) | payer MEDICAID ==
[2022-03-06 11:32] LABS: Basophils # (Auto) 0.1 K/mm3 (0.0-0.1); Basophils % (Auto) 0.7 % (0.0-1.8); Eosinophils # (Auto) 0.1 K/mm3 (0.0-0.4); Eosinophils % (Auto) 1.2 % (0.0-4.3); Hematocrit 38.7 % (30.3-42.9); Hemoglobin 12.7 gm/dl (10.1-14.3); Lymphocytes # (Auto) 2.4 K/mm3 (1.2-5.4); Lymphocytes % (Auto) 28.8 % (13.4-35.0); Mean Corpuscular HGB Conc 33 % (30-34); Mean Corpuscular Volume 90 fl (79-97); Monocytes # (Auto) 0.6 K/mm3 (0.0-0.8); Monocytes % (Auto) 6.8 % (0.0-7.3); Platelet Count 229 K/mm3 (140-440); Red Blood Count 4.28 M/mm3 (3.65-5.03); Red Cell Distribution Width 13.2 % (13.2-15.2)
[2022-03-06 11:52] LABS: Alanine Aminotransferase 12 units/L (7-56); Albumin 4.3 g/dL (3.9-5); Blood Urea Nitrogen 10 mg/dL (7-17); Calcium 9.6 mg/dL (8.4-10.2); HDL Cholesterol 50 mg/dL (40-59); Hemolysis Index 27; Iron 79 ug/dL (37-170); LDL Cholesterol,Direct 118 mg/dL (50-130)
[2022-03-06 11:53] LABS: % Iron Saturation 28.83 %; Total Iron Binding Capacity 274 mcg/dL (250-450)
[2022-03-06 11:54] LABS: BUN/Creatinine Ratio 14
== END 2022-03-06 10:42 | disposition home or self-care (01) ==
LOC: LAB 10:41
PROVIDERS: ATTEND Surgery
DX: Z13.21 Encounter for screening for nutritional disorder (principal); Z13.29 Encounter for screening for other suspected endocrine disorder; K90.9 Intestinal malabsorption, unspecified; E11.9 Type 2 diabetes mellitus without complications; E55.9 Vitamin D deficiency, unspecified; K30 Functional dyspepsia; E66.01 Morbid (severe) obesity due to excess calories; Z98.84 Bariatric surgery status
CPT/HCPCS: 36415; 80053; 80061; 82607; 82728; 83036; 83550; 83970; 84425; 84443; 85025